=== PATIENT | female | born 1935 | race Caucasian/White ===

== ENCOUNTER 2017-04-13 15:02 | Inpatient (IN) | payer MEDICAID, MEDICARE ==
[~2017-04-13] VITALS: Ht 162.6 cm; Wt 41.9 kg
[2017-04-13] MEDS ORDERED: 0.9 % SODIUM CHLORIDE 10 ML DISP.SYRIN. IV PRN (15:15)
[2017-04-13] MEDS ORDERED: IV NORMAL SALINE 1000ML BAG 1,000 ML IV SCH (15:30)
--- NOTE | 2017-04-13 15:36 | PHYS DOC ---
Past Medical History Past Medical History: Anemia, Cancer Additional Past Medical Histor: colon cancer 2002 Past Surgical History: Colectomy Alcohol Use: None Drug Use: None Adult General Chief Complaint Chief Complaint: ALTERED MENTAL STATUS HPI HPI Patient is a pleasant 81-year-old female who presents with confusion today and generalized fatigue with no general complaints but she does not feel comfortable to go home. What I was able to ascertain from her history patient lives alone by herself was brought in today because of failure to thrive. She normally is able to take care of herself feet herself do daily activities of living but has at this point she is also significant amount of weight seems very confused. She has no specific complaints as accompanied days look in her face but is unable to answer any pertinent questions about her past medical problems with the exception of history of ectopic and years and years and years ago. Patient claims not drink alcohol or smoke patient is not allergic to any medications. Patient's no complaint of abdominal pain, URI symptoms, UTI symptoms, nausea, vomiting, diarrhea, rash, chest pain, shortness breath or other symptoms except generalized weakness. Differential diagnosis included upon presentation on illnesses. 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 It often presents suddenly and fluctuates in intensity. Delirium frequently is associated with psychotic symptoms and can improve following antipsychotic treatment [Frequent causes of delirium include fluid or electrolyte abnormalities, hypoglycemia, hypoxia, hypercapnea, infections, or medications, substance intoxication or withdrawal Endocrine disorders Thyroid disease, parathyroid disease, adrenal disease. Hepatic and renal disorders Hepatic encephalopathy, uremic encephalopathy Infectious disease HIV, syphilis, herpes simplex encephalitis, Lyme disease, prion disorders Inflammatory or demyelinating disorders Anti-NMDA receptor encephalitis, systemic lupus erythematosus, multiple sclerosis, leukodystrophic. Metabolic disorders or acute processes Wilsons disease, acute intermittent porphyria. Neurodegenerative disorders Alzheimers disease, dementia with Lewy bodies, Parkinsons disease, Huntingtons disease. Neurological Head trauma/traumatic brain injury, space-occupying lesions ( tumors, cysts), seizure disorders; stroke. Vitamin deficiency Vitamin B12 deficiency. [] Review of Systems Review of Systems Constitutional: Denies fever or chills she complains of generalized weakness Eyes: Denies change in visual acuity, redness, or eye pain [] HENT: Denies nasal congestion or sore throat [] Respiratory: Denies cough or shortness of breath [] Cardiovascular: No additional information not addressed in HPI [] GI: Denies abdominal pain, nausea, vomiting, bloody stools or diarrhea [] : Denies dysuria or hematuria [] Musculoskeletal: Denies back pain or joint pain [] Integument: Denies rash or skin lesions [] Neurologic: Denies headache, focal weakness or sensory changes [] Endocrine: Denies polyuria or polydipsia [] Current Medications Current Medications Current Medications Medications (Trade) Dose Ordered Sig/Jason Start Time Stop Time Status Last Admin Dose Admin Sodium Chloride (Normal Saline Flush) 10 ml QSHIFT PRN 04/13/17 15:15 04/13/17 16:13 10 ML Allergies Allergies Allergies Coded Allergies Type Severity Reaction Last Updated Verified No Known Drug Allergies 04/13/17 No Physical Exam Physical Exam Constitutional: Patient is very thin and cachectic shows central muscle wasting as well as temporal wasting she is obviously dehydrated but in no acute distress nontoxic in appearance. HENT: Normocephalic, atraumatic, bilateral external ears normal, mild erythema or exudates extremities are dry Eyes: PERRLA, EOMI, conjunctiva normal, no discharge. [] Neck: Normal range of motion, no tenderness, supple, no stridor. No bruits Cardiovascular:Heart rate regular rhythm, no murmur [] Lungs & Thorax: Bilateral breath sounds clear to auscultation [] Abdomen: Bowel sounds normal, soft, no tenderness, no masses, no pulsatile masses. [] Skin: Warm, dry, no erythema, no rash. [] Back: No obvious deformity or tenderness no obvious schilling of trauma. Extremities: No tenderness, no cyanosis, no clubbing, ROM intact, no edema. [] Neurologic: Alert and oriented X 1, normal motor function, patient moves all limbs spontaneously no apparent sensory dysfunction patient has obvious disorientation is repeating herself multiple times. Psychologic: She feels and seems very depressed to me. She is very sad looking has tears in her eyes Current Patient Data Vital Signs Vital Signs Date Time Temp Pulse Resp B/P (MAP) Pulse Ox O2 Delivery O2 Flow Rate FiO2 04/13/17 17:00 58 16 162/74 (103) 93 2.0 04/13/17 15:19 99.0 Room Air 99.0 Lab Values Laboratory Tests Test 04/13/17 15:35 White Blood Count 3.5 x10^3/uL (4.0-11.0) L Red Blood Count 3.75 x10^6/uL (3.50-5.40) Hemoglobin 10.7 g/dL (12.0-15.5) L Hematocrit 32.3 % (36.0-47.0) L Mean Corpuscular Volume 86 fL (79-100) Mean Corpuscular Hemoglobin 29 pg (25-35) Mean Corpuscular Hemoglobin Concent 33 g/dL (31-37) Red Cell Distribution Width 17.4 % (11.5-14.5) H Platelet Count 81 x10^3/uL (140-400) L Neutrophils (%) (Auto) 70 % (31-73) Lymphocytes (%) (Auto) 13 % (24-48) L Monocytes (%) (Auto) 17 % (0-9) H Eosinophils (%) (Auto) 0 % (0-3) Basophils (%) (Auto) 0 % (0-3) Neutrophils # (Auto) 2.5 x10^3uL (1.8-7.7) Lymphocytes # (Auto) 0.5 x10^3/uL (1.0-4.8) L Monocytes # (Auto) 0.6 x10^3/uL (0.0-1.1) Eosinophils # (Auto) 0.0 x10^3/uL (0.0-0.7) Basophils # (Auto) 0.0 x10^3/uL (0.0-0.2) Segmented Neutrophils % 66 % (35-66) Lymphocytes % 18 % (24-48) L Monocytes % 12 % (0-10) H Eosinophils % 1 % (0-5) Metamyelocytes % 3 % (0-0) H Platelet Estimate Decreased (ADEQUATE) Anisocytosis Slight Sodium Level 143 mmol/L (136-145) Potassium Level 3.5 mmol/L (3.5-5.1) Chloride Level 104 mmol/L (98-107) Carbon Dioxide Level 25 mmol/L (21-32) Anion Gap 14 (6-14) Blood Urea Nitrogen 26 mg/dL (7-20) H Creatinine 1.2 mg/dL (0.6-1.0) H Estimated GFR (Cockcroft-Gault) 43.2 BUN/Creatinine Ratio 22 (6-20) H Glucose Level 103 mg/dL (70-99) H Lactic Acid Level 1.3 mmol/L (0.4-2.0) Calcium Level 9.0 mg/dL (8.5-10.1) Magnesium Level 1.9 mg/dL (1.8-2.4) Total Bilirubin 0.6 mg/dL (0.2-1.0) Aspartate Amino Transferase (AST) 27 U/L (15-37) Alanine Aminotransferase (ALT) 26 U/L (14-59) Alkaline Phosphatase 101 U/L (46-116) Ammonia < 10 mcmol/L (11-34) L Creatine Kinase 50 U/L (26-192) Creatine Kinase MB (Mass) < 0.5 ng/mL (0.0-3.6) Creatine Kinase MB Relative Index % (0-4) Troponin I Quantitative 0.024 ng/mL (0.000-0.055) OT-Fcp-I-Type Natriuretic Peptide 1155 pg/mL (0-449) H Total Protein 7.9 g/dL (6.4-8.2) Albumin 3.4 g/dL (3.4-5.0) Albumin/Globulin Ratio 0.8 (1.0-1.7) L Thyroid Stimulating Hormone (TSH) 3.054 uIU/mL (0.358-3.74) Laboratory Tests 04/13/17 15:35 Laboratory Tests 04/13/17 15:35 EKG EKG [] Radiology/Procedures Radiology/Procedures [] Course & Med Decision Making Course & Med Decision Making Pertinent Labs and Imaging studies reviewed. (See chart for details) Patient initially presented with generalized weakness and not feeling all that well was admitted to the hospital here for a second evaluation for failure to thrive. Patient seems very depressed and says that she doesn't really want to go on living like this although she expresses no specific suicidal ideation or suicidal attempt she seems very depressed and unable to form her thoughts about what she means by that feeling. She lives by herself and she is very cachectic very disheveled with generalized weakness and likely inability to complete activities of daily living. During her evaluation is evident that she is dehydrated on physical exam she is malnourished with mild muscle wasting at the temples. 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 Urinalysis is still pending at this time. At this point patient will be admitted to the hospital with failure to thrive to internal medicine service for the sake of penitentiary placement. [facility] note: Internal medicine service consult [facility] called at of the service 6:30 PM Consult called back at 63 5 PM Discussed the case I presented and they agreed with admission. Time of acceptance 635 Impression: Dehydration, depression, failure to thrive, generalized weakness Disposition admission the hospital doctor [] Lydia Disclaimer Dragon Disclaimer This electronic medical record was generated, in whole or in part, using a voice recognition dictation system. Departure Departure Impression: Primary Impression: Failure to thrive Additional Impressions: Dehydration Malnutrition Depression Disposition: ADMITTED INPATIENT Admitting Physician: Joy Lopez Condition: STABLE Problem Qualifiers SHARAN ADKINS MD Apr 13, 2017 15:36
--- NOTE | 2017-04-13 15:45 | RAD ---
Indication change in mental status. Weakness. Suspect CVA. Protocol study. A single view of the chest was obtained. No prior imaging of the chest is available. Heart size is normal. There is no gross congestive heart failure. There are suspect background changes of emphysema or fibrosis. There are patchy opacities at the lung bases. This may reflect atelectasis or pneumonia. Significant pleural fluid is not seen. There is no pneumothorax. IMPRESSION: Probable chronic changes. Patchy areas of volume loss at the lung bases right somewhat greater than left compatible with atelectasis or pneumonia
[2017-04-13 15:47] LABS: BASO % 0 % (0-3); EOS % 0 % (0-3); HEMATOCRIT 32.3 % (36.0-47.0); HEMOGLOBIN 10.7 g/dL (12.0-15.5); LYMPH # 0.5 x10^3/uL (1.0-4.8); LYMPH % 13 % (24-48); MEAN CORPUSCULAR HEMOGLOBIN 29 pg (25-35); MEAN CORPUSCULAR HGB CONC 33 g/dL (31-37); MEAN CORPUSCULAR VOLUME 86 fL (79-100); MONO % 17 % (0-9); NEUT % 70 % (31-73); PLATELET COUNT 81 x10^3/uL (140-400); RED BLOOD COUNT 3.75 x10^6/uL (3.50-5.40); RED CELL DISTRIBUTION WIDTH 17.4 % (11.5-14.5); WHITE BLOOD COUNT 3.5 x10^3/uL (4.0-11.0)
[2017-04-13 15:54] LABS: CREATININE 1.2 mg/dL (0.6-1.0); GFR 43.2; POTASSIUM 3.5 mmol/L (3.5-5.1)
[2017-04-13 16:00] LABS: ALBUMIN 3.4 g/dL (3.4-5.0); ALBUMIN/GLOBULIN RATIO 0.8 (1.0-1.7); MAGNESIUM 1.9 mg/dL (1.8-2.4); TOTAL BILIRUBIN 0.6 mg/dL (0.2-1.0); TOTAL PROTEIN 7.9 g/dL (6.4-8.2)
--- NOTE | 2017-04-13 16:06 | RAD ---
Indication change in mental status. Noncontrast images of the head were obtained. No prior imaging of the head is available. The calvarium appears unremarkable. The visualized paranasal sinuses appear normal. There is some mild underlying atrophy. There is increased lucency in the deep white matter compatible with microvascular disease. No subdural or epidural hematoma is seen. No mass or midline shift is seen. There is no evidence of hemorrhage. Acute finding is not seen. IMPRESSION: Chronic changes. No acute finding seen PQRS Compliance Statement: One or more of the following individualized dose reduction techniques were utilized for this examination: 1. Automated exposure control 2. Adjustment of the mA and/or kV according to patient size 3. Use of iterative reconstruction technique
--- NOTE | 2017-04-13 16:09 | EKG ---
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 RI6.01 Unconfirmed report No previous ECG available for comparison Electronically Signed On 04-18-2017 9:33:20 CDT by Vu Alexander
[2017-04-13 16:20] LABS: CKMB MASS < 0.5 ng/mL (0.0-3.6); CREATINE KINASE 50 U/L (26-192)
[2017-04-13 17:30] LABS: % EOS 1 % (0-5); ANISOCYTOSIS SLIGHT; PLT ESTIMATE DECREASED (ADEQUATE)
[2017-04-13] MEDS ORDERED: ONDANSETRON PF 4 MG/2 ML VIAL. IV PRN (19:00)
[2017-04-13] MEDS ORDERED: PROCHLORPERAZINE 10 MG/2 ML VIAL. IV PRN (19:00)
[2017-04-13] MEDS ORDERED: PROCHLORPERAZINE 25 MG SUPP.RECT. PR PRN (19:00)
[2017-04-13] MEDS ORDERED: MAG HYDROX/ALUMINUM HYD/SIMETH 30 ML ORAL.SUSP PO PRN (19:00)
[2017-04-13] MEDS ORDERED: HYDROcodone/APAP 5/325MG 1 TAB TABLET PO PRN (19:00)
[2017-04-13] MEDS ORDERED: ACETAMINOPHEN 325 MG TABLET. PO PRN (19:00)
[2017-04-13] MEDS ORDERED: MORPHINE SULFATE 2 MG/ML DISP.SYRIN. IV PRN (19:00)
[2017-04-13 19:35] LABS: BILIRUBIN,URINE NEGATIVE (NEG); GLUCOSE,URINE NEGATIVE (NEG); NITRITE,URINE NEGATIVE (NEG); PH,URINE 5.5; PROTEIN,URINE 100 mg/dL (NEG-TRACE); UROBILINOGEN,URINE 0.2 mg/dL (0.2 mg/dL)
[2017-04-13 19:48] LABS: BACTERIA,URINE MANY /HPF (0-FEW); SQUAMOUS EPITHELIAL CELL,UR MOD /LPF; WBC,URINE >40 /HPF (0-4)
--- NOTE | 2017-04-13 20:02 | PDOC1 ---
History and Physical Date of Admission Date of Admission DATE: 04/13/17 TIME: 19:50 Identification/Chief Complaint Chief Complaint poor PO, generalized weakness, confusion/not making sense Problems: Source Source: Caregiver, Chart review, Patient History of Present Illness History of Present Illness 81 y.o very frail lady who lives alone at home, drives still up until few mos ago when more weak, losing weight more, acting/saying non sense anymore , as relayed by the niece,.She does not have sons/dtr, the niece acts as her DPOA/guardian,. LAtely has been acting like a "broken record" , seeing snakes in house, losing weight, Started to go downhill since Nov 2016 of sorts, weight 155 lbs late last yr and now possibly down to 90 lbs. Lives alone at home , no reported falls, claims was able to go to the grocery with niece's few weeks ago. Supposed to be taking iron pills but not anymore, claims she takes vinegar? to counter act her high BS LAbs ER, CT head small vessel change, labs crea 1,2 platelets 80 - new to pt, no reported easy bruising but did mention nosebleed? when asked Essentially, labs look benign, likely dementia. HR though is 47 at rest, also new. HX colon CA 15 yrs ago, limited Asks about mold and radon at home if this could cause her sxs, or being low on iron. Pt mildly anemia with hgb 10, normocytic Past Medical History Cardiovascular: No pertinent hx Pulmonary: No pertinent hx GI: No pertinent hx Heme/Onc: Cancer (colon ca, limited), Iron deficiency Anemia Hepatobiliary: No pertinent hx Psych: No pertinent hx Rheumatologic: No pertinent hx Infectious disease: No pertinent hx ENT: No pertinent hx Renal/: No pertinent hx Endocrine: No pertinent hx, Other (high BS?) Dermatology: No pertinent hx Past Surgical History Past Surgical History: No pertinent history Family History Family History: Family History Unknown Social History Smoke: No ALCOHOL: none Drugs: None Current Problem List Problem List Problems Medical Problems: (1) Dehydration Status: Acute (2) Depression Status: Acute (3) Failure to thrive Status: Acute (4) Malnutrition Status: Acute Problems: Current Medications Current Medications Current Medications Sodium Chloride 1,000 ml @ 1,000 mls/hr Q1H IV Last administered on 04/13/17 16:13; Start 04/13/17 at 15:30; Stop 04/13/17 at 16:29; Status DC Sodium Chloride (Normal Saline Flush) 10 ml QSHIFT PRN IV AFTER MEDS AND BLOOD DRAWS Last administered on 04/13/17 16:13; Start 04/13/17 at 15:15 Ondansetron HCl (Zofran) 4 mg PRN Q6HRS PRN IV NAUSEA/VOMITING; Start 04/13/17 at 19:00 Prochlorperazine Edisylate (Compazine) 10 mg PRN Q6HRS PRN IV NAUSEA/VOMITING; Start 04/13/17 at 19:00 Prochlorperazine (Compazine) 25 mg PRN Q12HR PRN CO NAUSEA/VOMITING; Start 04/13 at 19:00 Al Hydroxide/Mg Hydroxide (Mylanta Plus Xs) 30 ml PRN Q3HRS PRN PO HEARTBURN / GAS; Start 04/13/17 at 19:00 Calcium Carbonate/ Glycine (Tums) 500 mg PRN Q3HRS PRN PO UPSET STOMACH; Start 04/13/17 at 19:00 Morphine Sulfate 1 mg PRN Q1HR PRN IV PAIN; Start 04/13/17 at 19:00 Acetaminophen/ Hydrocodone Bitart (Lortab 5/325) 1 tab PRN Q4HRS PRN PO MILD PAIN; Start 04/13/17 at 19:00 Acetaminophen (Tylenol) 650 mg PRN Q6HRS PRN PO Headaches, Temp > 101.5F; Start 04/13/17 at 19:00 Allergies Allergies: Coded Allergies: No Known Drug Allergies (Unverified , 04/13/17) ROS Review of System difficult to obtain, hard to focus Physical Exam General: Cooperative, No acute distress, Other (scatterd ideas, jumps from 1 topic to another, very frail, thin) HEENT: Atraumatic, PERRLA, EOMI Lungs: Clear to auscultation Heart: S1S2, RRR, no thrills, no rubs, no gallops, no murmurs Cardiovascular: S1, S2 Breasts: Normal Abdomen: Normal bowel sounds, Soft, No tenderness, No hepatosplenomegaly, No masses Rectal Exam: not examined PELVIC: Nml ext genitalia Extremities: No clubbing, No cyanosis, No edema, Normal pulses, No tenderness/ swelling Skin: Other (miniaml subQ tissue) Neuro: Normal gait, Normal speech, Strength at 5/5 X4 ext, Normal tone, Sensation intact, Cranial nerves 3-12 NL, Reflexes 2+ Psych/Mental Status: Mental status NL, Mood NL Vitals Vitals Vital Signs Date Time Temp Pulse Resp B/P (MAP) Pulse Ox O2 Delivery O2 Flow Rate FiO2 04/13/17 18:00 56 16 166/84 (111) 95 2.0 04/13/17 15:19 99.0 Room Air 99.0 Labs Labs Laboratory Tests Test 04/13/17 15:35 04/13/17 19:10 White Blood Count 3.5 x10^3/uL (4.0-11.0) Red Blood Count 3.75 x10^6/uL (3.50-5.40) Hemoglobin 10.7 g/dL (12.0-15.5) Hematocrit 32.3 % (36.0-47.0) Mean Corpuscular Volume 86 fL (79-100) Mean Corpuscular Hemoglobin 29 pg (25-35) Mean Corpuscular Hemoglobin Concent 33 g/dL (31-37) Red Cell Distribution Width 17.4 % (11.5-14.5) Platelet Count 81 x10^3/uL (140-400) Neutrophils (%) (Auto) 70 % (31-73) Lymphocytes (%) (Auto) 13 % (24-48) Monocytes (%) (Auto) 17 % (0-9) Eosinophils (%) (Auto) 0 % (0-3) Basophils (%) (Auto) 0 % (0-3) Neutrophils # (Auto) 2.5 x10^3uL (1.8-7.7) Lymphocytes # (Auto) 0.5 x10^3/uL (1.0-4.8) Monocytes # (Auto) 0.6 x10^3/uL (0.0-1.1) Eosinophils # (Auto) 0.0 x10^3/uL (0.0-0.7) Basophils # (Auto) 0.0 x10^3/uL (0.0-0.2) Segmented Neutrophils % 66 % (35-66) Lymphocytes % 18 % (24-48) Monocytes % 12 % (0-10) Eosinophils % 1 % (0-5) Metamyelocytes % 3 % (0-0) Platelet Estimate Decreased (ADEQUATE) Anisocytosis Slight Sodium Level 143 mmol/L (136-145) Potassium Level 3.5 mmol/L (3.5-5.1) Chloride Level 104 mmol/L (98-107) Carbon Dioxide Level 25 mmol/L (21-32) Anion Gap 14 (6-14) Blood Urea Nitrogen 26 mg/dL (7-20) Creatinine 1.2 mg/dL (0.6-1.0) Estimated GFR (Cockcroft-Gault) 43.2 BUN/Creatinine Ratio 22 (6-20) Glucose Level 103 mg/dL (70-99) Lactic Acid Level 1.3 mmol/L (0.4-2.0) Calcium Level 9.0 mg/dL (8.5-10.1) Magnesium Level 1.9 mg/dL (1.8-2.4) Total Bilirubin 0.6 mg/dL (0.2-1.0) Aspartate Amino Transf (AST/SGOT) 27 U/L (15-37) Alanine Aminotransferase (ALT/SGPT) 26 U/L (14-59) Alkaline Phosphatase 101 U/L (46-116) Ammonia < 10 mcmol/L (11-34) Creatine Kinase 50 U/L (26-192) Creatine Kinase MB (Mass) < 0.5 ng/mL (0.0-3.6) Creatine Kinase MB Relative Index % (0-4) Troponin I Quantitative 0.024 ng/mL (0.000-0.055) TH-Oig-S-Type Natriuretic Peptide 1155 pg/mL (0-449) Total Protein 7.9 g/dL (6.4-8.2) Albumin 3.4 g/dL (3.4-5.0) Albumin/Globulin Ratio 0.8 (1.0-1.7) Thyroid Stimulating Hormone (TSH) 3.054 uIU/mL (0.358-3.74) Urine Collection Type Void Urine Color Yellow Urine Clarity Clear Urine pH 5.5 Urine Specific [place] 1.015 Urine Protein 100 mg/dL (NEG-TRACE) Urine Glucose (UA) Negative mg/dL (NEG) Urine Ketones (Stick) Trace mg/dL (NEG) Urine Blood Moderate (NEG) Urine Nitrite Negative (NEG) Urine Bilirubin Negative (NEG) Urine Urobilinogen Dipstick 0.2 mg/dL (0.2 mg/dL) Urine Leukocyte Esterase Moderate (NEG) Urine RBC 11-20 /HPF (0-2) Urine WBC >40 /HPF (0-4) Urine Squamous Epithelial Cells Mod /LPF Urine Bacteria Many /HPF (0-FEW) Urine Mucus Mod /LPF Laboratory Tests Test 04/13/17 15:35 04/13/17 19:10 White Blood Count 3.5 x10^3/uL (4.0-11.0) Red Blood Count 3.75 x10^6/uL (3.50-5.40) Hemoglobin 10.7 g/dL (12.0-15.5) Hematocrit 32.3 % (36.0-47.0) Mean Corpuscular Volume 86 fL (79-100) Mean Corpuscular Hemoglobin 29 pg (25-35) Mean Corpuscular Hemoglobin Concent 33 g/dL (31-37) Red Cell Distribution Width 17.4 % (11.5-14.5) Platelet Count 81 x10^3/uL (140-400) Neutrophils (%) (Auto) 70 % (31-73) Lymphocytes (%) (Auto) 13 % (24-48) Monocytes (%) (Auto) 17 % (0-9) Eosinophils (%) (Auto) 0 % (0-3) Basophils (%) (Auto) 0 % (0-3) Neutrophils # (Auto) 2.5 x10^3uL (1.8-7.7) Lymphocytes # (Auto) 0.5 x10^3/uL (1.0-4.8) Monocytes # (Auto) 0.6 x10^3/uL (0.0-1.1) Eosinophils # (Auto) 0.0 x10^3/uL (0.0-0.7) Basophils # (Auto) 0.0 x10^3/uL (0.0-0.2) Segmented Neutrophils % 66 % (35-66) Lymphocytes % 18 % (24-48) Monocytes % 12 % (0-10) Eosinophils % 1 % (0-5) Metamyelocytes % 3 % (0-0) Platelet Estimate Decreased (ADEQUATE) Anisocytosis Slight Sodium Level 143 mmol/L (136-145) Potassium Level 3.5 mmol/L (3.5-5.1) Chloride Level 104 mmol/L (98-107) Carbon Dioxide Level 25 mmol/L (21-32) Anion Gap 14 (6-14) Blood Urea Nitrogen 26 mg/dL (7-20) Creatinine 1.2 mg/dL (0.6-1.0) Estimated GFR (Cockcroft-Gault) 43.2 BUN/Creatinine Ratio 22 (6-20) Glucose Level 103 mg/dL (70-99) Lactic Acid Level 1.3 mmol/L (0.4-2.0) Calcium Level 9.0 mg/dL (8.5-10.1) Magnesium Level 1.9 mg/dL (1.8-2.4) Total Bilirubin 0.6 mg/dL (0.2-1.0) Aspartate Amino Transf (AST/SGOT) 27 U/L (15-37) Alanine Aminotransferase (ALT/SGPT) 26 U/L (14-59) Alkaline Phosphatase 101 U/L (46-116) Ammonia < 10 mcmol/L (11-34) Creatine Kinase 50 U/L (26-192) Creatine Kinase MB (Mass) < 0.5 ng/mL (0.0-3.6) Creatine Kinase MB Relative Index % (0-4) Troponin I Quantitative 0.024 ng/mL (0.000-0.055) XN-Rkk-I-Type Natriuretic Peptide 1155 pg/mL (0-449) Total Protein 7.9 g/dL (6.4-8.2) Albumin 3.4 g/dL (3.4-5.0) Albumin/Globulin Ratio 0.8 (1.0-1.7) Thyroid Stimulating Hormone (TSH) 3.054 uIU/mL (0.358-3.74) Urine Collection Type Void Urine Color Yellow Urine Clarity Clear Urine pH 5.5 Urine Specific [place] 1.015 Urine Protein 100 mg/dL (NEG-TRACE) Urine Glucose (UA) Negative mg/dL (NEG) Urine Ketones (Stick) Trace mg/dL (NEG) Urine Blood Moderate (NEG) Urine Nitrite Negative (NEG) Urine Bilirubin Negative (NEG) Urine Urobilinogen Dipstick 0.2 mg/dL (0.2 mg/dL) Urine Leukocyte Esterase Moderate (NEG) Urine RBC 11-20 /HPF (0-2) Urine WBC >40 /HPF (0-4) Urine Squamous Epithelial Cells Mod /LPF Urine Bacteria Many /HPF (0-FEW) Urine Mucus Mod /LPF VTE Prophylaxis Ordered VTE Prophylaxis Devices: Contraindicated VTE Pharmacological Prophylaxi: Contraindicated Assessment/Plan Assessment/Plan 1. FTT sxs 2. 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 Anemia, normocytic 4. Hx Yosvany and colon ca, limited (15vyrs ago) 5. Undernourished/undernutrition - BMI 15.4 6. BASHIR, vaso motor 7. Poor PO 8. Bradycardia 9. Thrombocytopnia - new dx *(At least to pt) PLAN: Admit 2 [place] NIece agreeble to SNU SCS as DVT NO lovenox or heparin bec of low platelets MAy consult heme onc - but would not aggressively work up this elderly (niece wants us "not to just give up on her"), wants full work up' Consult cards re bradycardia NO home meds to resume PT.OT SW SNU screen IVF from ER then procalamine for caloric build up NUtrition consult Re check BMP nell Dementia work up, chesk TSH, ESR, b12, folate Can consult neuro - i did heavy counselling at ER level re dementia - i think niece hearing it from neurologist will drive home the point Seen at ER SIGNIF TIME QUIRINO GOMEZ MD Apr 13, 2017 20:02
[2017-04-13 21:10] VITALS: BP 155/58
[2017-04-13] MEDS ORDERED: PNEUMOCOCCAL VAX SCREEN BY RX. MC ONE (22:30)
[2017-04-13] MEDS: AMINO AC 3%/ELECTROLYTE/GLYCER 1,000 ML IV SCH (22:43)
--- NOTE | 2017-04-13 23:04 | ACF ---
Admission Forms Criteria MALNUTRITION Clinical Indications for Inpatient Care (Place 'X' for any and all applicable criteria): Ongoing inpatient care may be indicated for patient requiring artificial nutrition[B] as indicated by ANY ONE of the following (1)(32): [X ]I. BMI less than 16 [ ]II Inability to maintain oral intake (33) [ ]III. Severe metabolic abnormalities, including 1 or more of the following(18 ): [ ]a) Metabolic acidosis as indicated by pH less than 7.30 [ ]b) Significant hypocalcemia as indicated by 1 or more of the following(19): [ ]i) Calcium less than 7 mg/dL (1.75 mmol/L) [ ]ii) Calcium less than 8 mg/dL (2 mmol/L) with 1 or more of the following: [ ]1) Neurologic symptoms [ ]2) Altered mental status [ ]3) Muscle spasms [ ]4) Seizures [ ]5) Breathing difficulty [ ]6) Cardiac arrhythmia or conduction defects [ ]7) Other significant symptoms or findings [ ]c) Significant hypomagnesemia as indicated by 1 or more of the following(20)(21): [ ]i) Magnesium less than 1.0 mg/dL (0.41 mmol/L) [ ]ii) Magnesium less than 1.5 mg/dL (0.62 mmol/L) and 1 or more of the following: [ ]1) Associated hypocalcemia with ANY ONE of the following: [ ]A. Neurologic symptoms [ ]B. Mental status changes [ ]C. Muscle spasms [ ]D. Seizures [ ]E. Breathing difficulty [ ]F. Cardiac arrhythmia or conduction defect [ ]G. Other significant findings [ ]2) Associated hypokalemia (potassium < 3 mEq/L (mmol/ L)) with risk of arrhythmia [ ]d) Refeeding syndrome with significant electrolyte abnormality as indicated by ANY ONE of the following(41)(41)(43): [ ]i) Phosphorus less than 1 mg/dL (0.32 mmol/L) [ ]ii) Phosphorus < 1.5 mg/dL (0.48 mmol/L) with 1 or more of the following significant symptoms or findings: [ ]1) Weakness [ ]2) Altered mental status [ ]3) Breathing difficulty [ ]4) Seizures [ ]5) Rhabdomyolysis [ ] iii) Sodium less than 130 mEq/L (mmol/L) (new) [ ] iv) Sodium less than 135 mEq/L (mmol/L) with 1 or more of the following: [ ]1) Altered mental status [ ]2) Seizures [ ] v) Potassium less than 3.0 mEq/L (mmol/L) despite treatment [ ]IV. Complication of parenteral nutrition requiring inpatient care; examples include(23): [ ]a) Catheter-related infection or thrombosis. [ ]b) Severe electrolyte abnormalities [ ]c) Severe hypoglycemia or hyperglycemia requiring inpatient care [ ]V. Complication of enteral nutrition requiring inpatient care (eg, gastric perforation) Extended stay maybe needed until ALL of the following are present(1)(26)(46): [ ]a) Metabolic abnormalities resolved or manageable at a lower level of care ; examples include: [ ]i) Serum pH greater than 7.3 [ ]ii) Electrolyte status acceptable [ ]b) Complications of enteral or parenteral nutrition resolved or manageable at a lower level of care [ ]c) Medical comorbidities manageable at a lower level of care The original [email or web address] content created by [employer] has been revised. The portions of the content which have been revised are identified through the use of italic text or in bold, and [facility] has neither reviewed nor approved the modified material. All other unmodified content is copyright [facility]. Please see references footnoted in the original [email or web address] edition 2016 Admission Criteria Met?: Yes RAHEEM SCHMITT Apr 13, 2017 23:04
[2017-04-13 23:05] VITALS: BP 131/48
[2017-04-14 03:15] VITALS: BP 142/57
[2017-04-14 07:50] VITALS: BP 129/50
[2017-04-14 08:57] LABS: BASO % 0 % (0-3); EOS % 0 % (0-3); HEMATOCRIT 28.1 % (36.0-47.0); HEMOGLOBIN 9.5 g/dL (12.0-15.5); LYMPH # 0.4 x10^3/uL (1.0-4.8); LYMPH % 11 % (24-48); MEAN CORPUSCULAR HEMOGLOBIN 29 pg (25-35); MEAN CORPUSCULAR HGB CONC 34 g/dL (31-37); MEAN CORPUSCULAR VOLUME 85 fL (79-100); MONO % 15 % (0-9); NEUT % 73 % (31-73); PLATELET COUNT 71 x10^3/uL (140-400); RED BLOOD COUNT 3.29 x10^6/uL (3.50-5.40); RED CELL DISTRIBUTION WIDTH 17.3 % (11.5-14.5); WHITE BLOOD COUNT 3.6 x10^3/uL (4.0-11.0)
[2017-04-14] MEDS ORDERED: ENOXAPARIN 30 MG/0.3 ML SYRINGE. SQ SCH (09:00)
[2017-04-14] MEDS ORDERED: PNEUMOC CONJ VACC 23-VALENT 0.5 ML VIAL. VAX IM ONE (09:00)
[2017-04-14 09:04] LABS: CALCIUM 8.1 mg/dL (8.5-10.1); CREATININE 0.8 mg/dL (0.6-1.0); POTASSIUM 3.8 mmol/L (3.5-5.1)
[2017-04-14] MEDS: AMINO AC 3%/ELECTROLYTE/GLYCER 1,000 ML IV SCH ×2 (10:08→22:00)
[2017-04-14 11:10] VITALS: BP 125/51
--- NOTE | 2017-04-14 11:16 | PDOC ---
PROGRESS NOTES Chief Complaint Chief Complaint 1. FTT sxs 2. 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 Anemia, normocytic 4. Hx Yosvany and colon ca, limited (15vyrs ago) 5. Undernourished/undernutrition - BMI 15.4 6. BASHIR, vaso motor 7. Poor PO 8. Bradycardia 9. Thrombocytopnia - new dx *(At least to pt) History of Present Illness History of Present Illness Brushing teeth in bed. On IV Pro[place] DW RN Vitals Vitals Vital Signs Date Time Temp Pulse Resp B/P (MAP) Pulse Ox O2 Delivery O2 Flow Rate FiO2 04/14/17 11:10 97.7 63 20 125/51 (75) 94 Nasal Cannula 2.0 97.7 Physical Exam General: Cooperative, No acute distress, Other (scatterd ideas, jumps from 1 topic to another, very frail, thin) Heart: Regular rate, Normal S1, Normal S2 Lungs: Clear Abdomen: Normal bowel sounds, Soft, No tenderness, No hepatosplenomegaly, No masses Extremities: No clubbing, No cyanosis, No edema, Normal pulses, No tenderness/ swelling Skin: No rashes, No breakdown, Other (miniaml subQ tissue) Labs LABS Laboratory Tests Test 04/13/17 15:35 04/13/17 19:10 04/14/17 07:30 White Blood Count 3.5 x10^3/uL (4.0-11.0) 3.6 x10^3/uL (4.0-11.0) Red Blood Count 3.75 x10^6/uL (3.50-5.40) 3.29 x10^6/uL (3.50-5.40) Hemoglobin 10.7 g/dL (12.0-15.5) 9.5 g/dL (12.0-15.5) Hematocrit 32.3 % (36.0-47.0) 28.1 % (36.0-47.0) Mean Corpuscular Volume 86 fL (79-100) 85 fL (79-100) Mean Corpuscular Hemoglobin 29 pg (25-35) 29 pg (25-35) Mean Corpuscular Hemoglobin Concent 33 g/dL (31-37) 34 g/dL (31-37) Red Cell Distribution Width 17.4 % (11.5-14.5) 17.3 % (11.5-14.5) Platelet Count 81 x10^3/uL (140-400) 71 x10^3/uL (140-400) Neutrophils (%) (Auto) 70 % (31-73) 73 % (31-73) Lymphocytes (%) (Auto) 13 % (24-48) 11 % (24-48) Monocytes (%) (Auto) 17 % (0-9) 15 % (0-9) Eosinophils (%) (Auto) 0 % (0-3) 0 % (0-3) Basophils (%) (Auto) 0 % (0-3) 0 % (0-3) Neutrophils # (Auto) 2.5 x10^3uL (1.8-7.7) 2.6 x10^3uL (1.8-7.7) Lymphocytes # (Auto) 0.5 x10^3/uL (1.0-4.8) 0.4 x10^3/uL (1.0-4.8) Monocytes # (Auto) 0.6 x10^3/uL (0.0-1.1) 0.6 x10^3/uL (0.0-1.1) Eosinophils # (Auto) 0.0 x10^3/uL (0.0-0.7) 0.0 x10^3/uL (0.0-0.7) Basophils # (Auto) 0.0 x10^3/uL (0.0-0.2) 0.0 x10^3/uL (0.0-0.2) Segmented Neutrophils % 66 % (35-66) Lymphocytes % 18 % (24-48) Monocytes % 12 % (0-10) Eosinophils % 1 % (0-5) Metamyelocytes % 3 % (0-0) Platelet Estimate Decreased (ADEQUATE) Anisocytosis Slight Erythrocyte Sedimentation Rate 62 (0-25) Sodium Level 143 mmol/L (136-145) 142 mmol/L (136-145) Potassium Level 3.5 mmol/L (3.5-5.1) 3.8 mmol/L (3.5-5.1) Chloride Level 104 mmol/L (98-107) 109 mmol/L (98-107) Carbon Dioxide Level 25 mmol/L (21-32) 28 mmol/L (21-32) Anion Gap 14 (6-14) 5 (6-14) Blood Urea Nitrogen 26 mg/dL (7-20) 23 mg/dL (7-20) Creatinine 1.2 mg/dL (0.6-1.0) 0.8 mg/dL (0.6-1.0) Estimated GFR (Cockcroft-Gault) 43.2 69.0 BUN/Creatinine Ratio 22 (6-20) Glucose Level 103 mg/dL (70-99) 107 mg/dL (70-99) Lactic Acid Level 1.3 mmol/L (0.4-2.0) Calcium Level 9.0 mg/dL (8.5-10.1) 8.1 mg/dL (8.5-10.1) Magnesium Level 1.9 mg/dL (1.8-2.4) Total Bilirubin 0.6 mg/dL (0.2-1.0) Aspartate Amino Transf (AST/SGOT) 27 U/L (15-37) Alanine Aminotransferase (ALT/SGPT) 26 U/L (14-59) Alkaline Phosphatase 101 U/L (46-116) Ammonia < 10 mcmol/L (11-34) Creatine Kinase 50 U/L (26-192) Creatine Kinase MB (Mass) < 0.5 ng/mL (0.0-3.6) Creatine Kinase MB Relative Index % (0-4) Troponin I Quantitative 0.024 ng/mL (0.000-0.055) RZ-Zqg-Y-Type Natriuretic Peptide 1155 pg/mL (0-449) Total Protein 7.9 g/dL (6.4-8.2) Albumin 3.4 g/dL (3.4-5.0) Albumin/Globulin Ratio 0.8 (1.0-1.7) Thyroid Stimulating Hormone (TSH) 3.054 uIU/mL (0.358-3.74) Urine Collection Type Void Urine Color Yellow Urine Clarity Clear Urine pH 5.5 Urine Specific [place] 1.015 Urine Protein 100 mg/dL (NEG-TRACE) Urine Glucose (UA) Negative mg/dL (NEG) Urine Ketones (Stick) Trace mg/dL (NEG) Urine Blood Moderate (NEG) Urine Nitrite Negative (NEG) Urine Bilirubin Negative (NEG) Urine Urobilinogen Dipstick 0.2 mg/dL (0.2 mg/dL) Urine Leukocyte Esterase Moderate (NEG) Urine RBC 11-20 /HPF (0-2) Urine WBC >40 /HPF (0-4) Urine Squamous Epithelial Cells Mod /LPF Urine Bacteria Many /HPF (0-FEW) Urine Mucus Mod /LPF Review of Systems Review of Systems co weakness co confusion Assessment and Plan Assessmemt and Plan Problems Medical Problems: (1) Dehydration Status: Acute (2) Depression Status: Acute (3) Failure to thrive Status: Acute (4) Malnutrition Status: Acute Assessment/Plan 1. FTT sxs 2. 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 Anemia, normocytic 4. Hx Yosvany and colon ca, limited (15vyrs ago) 5. Undernourished/undernutrition - BMI 15.4 6. BASHIR, vaso motor 7. Poor PO 8. Bradycardia 9. Thrombocytopnia - new dx *(At least to pt) PLAN: NIece agreeble to SNU SCS as DVT NO lovenox or heparin bec of low platelets MAy consult heme onc - but would not aggressively work up this elderly (niece wants us "not to just give up on her"), wants full work up' Consult cards re bradycardia NO home meds to resume PT.OT SW SNU screen IVF from ER then procalamine for caloric build up NUtrition consult Re check BMP nell Dementia work up, chesk TSH, ESR, b12, folate Can consult neuro - i did heavy counselling at ER level re dementia - i think niece hearing it from neurologist will drive home the point Problems: Comment Review of Relevant I have reviewed the following items mike (where applicable) has been applied. Labs Laboratory Tests Test 04/13/17 15:35 04/13/17 19:10 04/14/17 07:30 White Blood Count 3.5 x10^3/uL (4.0-11.0) 3.6 x10^3/uL (4.0-11.0) Red Blood Count 3.75 x10^6/uL (3.50-5.40) 3.29 x10^6/uL (3.50-5.40) Hemoglobin 10.7 g/dL (12.0-15.5) 9.5 g/dL (12.0-15.5) Hematocrit 32.3 % (36.0-47.0) 28.1 % (36.0-47.0) Mean Corpuscular Volume 86 fL (79-100) 85 fL (79-100) Mean Corpuscular Hemoglobin 29 pg (25-35) 29 pg (25-35) Mean Corpuscular Hemoglobin Concent 33 g/dL (31-37) 34 g/dL (31-37) Red Cell Distribution Width 17.4 % (11.5-14.5) 17.3 % (11.5-14.5) Platelet Count 81 x10^3/uL (140-400) 71 x10^3/uL (140-400) Neutrophils (%) (Auto) 70 % (31-73) 73 % (31-73) Lymphocytes (%) (Auto) 13 % (24-48) 11 % (24-48) Monocytes (%) (Auto) 17 % (0-9) 15 % (0-9) Eosinophils (%) (Auto) 0 % (0-3) 0 % (0-3) Basophils (%) (Auto) 0 % (0-3) 0 % (0-3) Neutrophils # (Auto) 2.5 x10^3uL (1.8-7.7) 2.6 x10^3uL (1.8-7.7) Lymphocytes # (Auto) 0.5 x10^3/uL (1.0-4.8) 0.4 x10^3/uL (1.0-4.8) Monocytes # (Auto) 0.6 x10^3/uL (0.0-1.1) 0.6 x10^3/uL (0.0-1.1) Eosinophils # (Auto) 0.0 x10^3/uL (0.0-0.7) 0.0 x10^3/uL (0.0-0.7) Basophils # (Auto) 0.0 x10^3/uL (0.0-0.2) 0.0 x10^3/uL (0.0-0.2) Segmented Neutrophils % 66 % (35-66) Lymphocytes % 18 % (24-48) Monocytes % 12 % (0-10) Eosinophils % 1 % (0-5) Metamyelocytes % 3 % (0-0) Platelet Estimate Decreased (ADEQUATE) Anisocytosis Slight Erythrocyte Sedimentation Rate 62 (0-25) Sodium Level 143 mmol/L (136-145) 142 mmol/L (136-145) Potassium Level 3.5 mmol/L (3.5-5.1) 3.8 mmol/L (3.5-5.1) Chloride Level 104 mmol/L (98-107) 109 mmol/L (98-107) Carbon Dioxide Level 25 mmol/L (21-32) 28 mmol/L (21-32) Anion Gap 14 (6-14) 5 (6-14) Blood Urea Nitrogen 26 mg/dL (7-20) 23 mg/dL (7-20) Creatinine 1.2 mg/dL (0.6-1.0) 0.8 mg/dL (0.6-1.0) Estimated GFR (Cockcroft-Gault) 43.2 69.0 BUN/Creatinine Ratio 22 (6-20) Glucose Level 103 mg/dL (70-99) 107 mg/dL (70-99) Lactic Acid Level 1.3 mmol/L (0.4-2.0) Calcium Level 9.0 mg/dL (8.5-10.1) 8.1 mg/dL (8.5-10.1) Magnesium Level 1.9 mg/dL (1.8-2.4) Total Bilirubin 0.6 mg/dL (0.2-1.0) Aspartate Amino Transf (AST/SGOT) 27 U/L (15-37) Alanine Aminotransferase (ALT/SGPT) 26 U/L (14-59) Alkaline Phosphatase 101 U/L (46-116) Ammonia < 10 mcmol/L (11-34) Creatine Kinase 50 U/L (26-192) Creatine Kinase MB (Mass) < 0.5 ng/mL (0.0-3.6) Creatine Kinase MB Relative Index % (0-4) Troponin I Quantitative 0.024 ng/mL (0.000-0.055) WX-Cgb-L-Type Natriuretic Peptide 1155 pg/mL (0-449) Total Protein 7.9 g/dL (6.4-8.2) Albumin 3.4 g/dL (3.4-5.0) Albumin/Globulin Ratio 0.8 (1.0-1.7) Thyroid Stimulating Hormone (TSH) 3.054 uIU/mL (0.358-3.74) Urine Collection Type Void Urine Color Yellow Urine Clarity Clear Urine pH 5.5 Urine Specific [place] 1.015 Urine Protein 100 mg/dL (NEG-TRACE) Urine Glucose (UA) Negative mg/dL (NEG) Urine Ketones (Stick) Trace mg/dL (NEG) Urine Blood Moderate (NEG) Urine Nitrite Negative (NEG) Urine Bilirubin Negative (NEG) Urine Urobilinogen Dipstick 0.2 mg/dL (0.2 mg/dL) Urine Leukocyte Esterase Moderate (NEG) Urine RBC 11-20 /HPF (0-2) Urine WBC >40 /HPF (0-4) Urine Squamous Epithelial Cells Mod /LPF Urine Bacteria Many /HPF (0-FEW) Urine Mucus Mod /LPF Laboratory Tests Test 04/13/17 15:35 04/13/17 19:10 04/14/17 07:30 White Blood Count 3.5 x10^3/uL (4.0-11.0) 3.6 x10^3/uL (4.0-11.0) Red Blood Count 3.75 x10^6/uL (3.50-5.40) 3.29 x10^6/uL (3.50-5.40) Hemoglobin 10.7 g/dL (12.0-15.5) 9.5 g/dL (12.0-15.5) Hematocrit 32.3 % (36.0-47.0) 28.1 % (36.0-47.0) Mean Corpuscular Volume 86 fL (79-100) 85 fL (79-100) Mean Corpuscular Hemoglobin 29 pg (25-35) 29 pg (25-35) Mean Corpuscular Hemoglobin Concent 33 g/dL (31-37) 34 g/dL (31-37) Red Cell Distribution Width 17.4 % (11.5-14.5) 17.3 % (11.5-14.5) Platelet Count 81 x10^3/uL (140-400) 71 x10^3/uL (140-400) Neutrophils (%) (Auto) 70 % (31-73) 73 % (31-73) Lymphocytes (%) (Auto) 13 % (24-48) 11 % (24-48) Monocytes (%) (Auto) 17 % (0-9) 15 % (0-9) Eosinophils (%) (Auto) 0 % (0-3) 0 % (0-3) Basophils (%) (Auto) 0 % (0-3) 0 % (0-3) Neutrophils # (Auto) 2.5 x10^3uL (1.8-7.7) 2.6 x10^3uL (1.8-7.7) Lymphocytes # (Auto) 0.5 x10^3/uL (1.0-4.8) 0.4 x10^3/uL (1.0-4.8) Monocytes # (Auto) 0.6 x10^3/uL (0.0-1.1) 0.6 x10^3/uL (0.0-1.1) Eosinophils # (Auto) 0.0 x10^3/uL (0.0-0.7) 0.0 x10^3/uL (0.0-0.7) Basophils # (Auto) 0.0 x10^3/uL (0.0-0.2) 0.0 x10^3/uL (0.0-0.2) Segmented Neutrophils % 66 % (35-66) Lymphocytes % 18 % (24-48) Monocytes % 12 % (0-10) Eosinophils % 1 % (0-5) Metamyelocytes % 3 % (0-0) Platelet Estimate Decreased (ADEQUATE) Anisocytosis Slight Erythrocyte Sedimentation Rate 62 (0-25) Sodium Level 143 mmol/L (136-145) 142 mmol/L (136-145) Potassium Level 3.5 mmol/L (3.5-5.1) 3.8 mmol/L (3.5-5.1) Chloride Level 104 mmol/L (98-107) 109 mmol/L (98-107) Carbon Dioxide Level 25 mmol/L (21-32) 28 mmol/L (21-32) Anion Gap 14 (6-14) 5 (6-14) Blood Urea Nitrogen 26 mg/dL (7-20) 23 mg/dL (7-20) Creatinine 1.2 mg/dL (0.6-1.0) 0.8 mg/dL (0.6-1.0) Estimated GFR (Cockcroft-Gault) 43.2 69.0 BUN/Creatinine Ratio 22 (6-20) Glucose Level 103 mg/dL (70-99) 107 mg/dL (70-99) Lactic Acid Level 1.3 mmol/L (0.4-2.0) Calcium Level 9.0 mg/dL (8.5-10.1) 8.1 mg/dL (8.5-10.1) Magnesium Level 1.9 mg/dL (1.8-2.4) Total Bilirubin 0.6 mg/dL (0.2-1.0) Aspartate Amino Transf (AST/SGOT) 27 U/L (15-37) Alanine Aminotransferase (ALT/SGPT) 26 U/L (14-59) Alkaline Phosphatase 101 U/L (46-116) Ammonia < 10 mcmol/L (11-34) Creatine Kinase 50 U/L (26-192) Creatine Kinase MB (Mass) < 0.5 ng/mL (0.0-3.6) Creatine Kinase MB Relative Index % (0-4) Troponin I Quantitative 0.024 ng/mL (0.000-0.055) BI-Icz-R-Type Natriuretic Peptide 1155 pg/mL (0-449) Total Protein 7.9 g/dL (6.4-8.2) Albumin 3.4 g/dL (3.4-5.0) Albumin/Globulin Ratio 0.8 (1.0-1.7) Thyroid Stimulating Hormone (TSH) 3.054 uIU/mL (0.358-3.74) Urine Collection Type Void Urine Color Yellow Urine Clarity Clear Urine pH 5.5 Urine Specific [place] 1.015 Urine Protein 100 mg/dL (NEG-TRACE) Urine Glucose (UA) Negative mg/dL (NEG) Urine Ketones (Stick) Trace mg/dL (NEG) Urine Blood Moderate (NEG) Urine Nitrite Negative (NEG) Urine Bilirubin Negative (NEG) Urine Urobilinogen Dipstick 0.2 mg/dL (0.2 mg/dL) Urine Leukocyte Esterase Moderate (NEG) Urine RBC 11-20 /HPF (0-2) Urine WBC >40 /HPF (0-4) Urine Squamous Epithelial Cells Mod /LPF Urine Bacteria Many /HPF (0-FEW) Urine Mucus Mod /LPF Medications Current Medications Sodium Chloride 1,000 ml @ 1,000 mls/hr Q1H IV Last administered on 04/13/17 16:13; Start 04/13/17 at 15:30; Stop 04/13/17 at 16:29; Status DC Sodium Chloride (Normal Saline Flush) 10 ml QSHIFT PRN IV AFTER MEDS AND BLOOD DRAWS Last administered on 04/13/17 16:13; Start 04/13/17 at 15:15 Ondansetron HCl (Zofran) 4 mg PRN Q6HRS PRN IV NAUSEA/VOMITING; Start 04/13/17 at 19:00 Prochlorperazine Edisylate (Compazine) 10 mg PRN Q6HRS PRN IV NAUSEA/VOMITING; Start 04/13/17 at 19:00 Prochlorperazine (Compazine) 25 mg PRN Q12HR PRN AR NAUSEA/VOMITING; Start 04/13 at 19:00 Al Hydroxide/Mg Hydroxide (Mylanta Plus Xs) 30 ml PRN Q3HRS PRN PO HEARTBURN / GAS; Start 04/13/17 at 19:00 Calcium Carbonate/ Glycine (Tums) 500 mg PRN Q3HRS PRN PO UPSET STOMACH; Start 04/13/17 at 19:00 Morphine Sulfate 1 mg PRN Q1HR PRN IV PAIN; Start 04/13/17 at 19:00 Acetaminophen/ Hydrocodone Bitart (Lortab 5/325) 1 tab PRN Q4HRS PRN PO MILD PAIN; Start 04/13/17 at 19:00 Acetaminophen (Tylenol) 650 mg PRN Q6HRS PRN PO Headaches, Temp > 101.5F; Start 04/13/17 at 19:00 Amino Acids/ Glycerin/ Electrolytes 1,000 ml @ 80 mls/hr [id number] IV Last administered on 04/14/17 10:08; Start 04/13/17 at 21:00 Enoxaparin Sodium (Lovenox 30mg Syringe) 30 mg DAILY SQ ; Start 04/14/17 at 09:00 Pneumococcal Polyvalent Vaccine (Do NOT chart on this placeholder) 1 each 1X ONCE MC ; Start 04/13/17 at 22:30; Stop 04/13/17 at 22:31; Status UNV Pneumococcal Polyvalent Vaccine (Pneumovax 23) 0.5 ml ONCE ONCE VAX IM ; Start 04/14/17 at 09:00; Stop 04/14/17 at 09:01; Status DC Vitals/I & O Vital Sign - Last 24 Hours 04/13/17 04/13/17 04/13/17 04/13/17 15:19 16:00 17:00 18:00 Temp 99.0 99.0 Pulse 65 60 58 56 Resp 20 16 16 16 B/P (MAP) 159/83 (108) 155/75 (101) 162/74 (103) 166/84 (111) Pulse Ox 94 88 93 95 O2 Delivery Room Air O2 Flow Rate 2.0 2.0 04/13/17 04/13/17 04/13/17 04/13/17 19:00 20:00 21:10 21:58 Temp 97.5 97.5 Pulse 54 54 50 Resp 16 16 20 B/P (MAP) 167/82 (110) 174/83 (113) 155/58 (90) Pulse Ox 96 96 98 O2 Delivery Nasal Cannula Room Air O2 Flow Rate 2.0 2.0 2.0 04/13/17 04/14/17 04/14/17 04/14/17 23:05 03:15 07:50 08:00 Temp 98.0 98.2 97.7 98.0 98.2 97.7 Pulse 57 52 47 Resp 20 20 20 B/P (MAP) 131/48 (75) 142/57 (85) 129/50 (76) Pulse Ox 98 97 95 O2 Delivery Nasal Cannula Nasal Cannula Nasal Cannula Room Air O2 Flow Rate 2.0 2.0 2.0 2.0 04/14/17 11:10 Temp 97.7 97.7 Pulse 63 Resp 20 B/P (MAP) 125/51 (75) Pulse Ox 94 O2 Delivery Nasal Cannula O2 Flow Rate 2.0 Intake and Output 04/13/17 04/13/17 04/14/17 15:00 23:00 07:00 Intake Total 220 ml Output Total 400 ml Balance -180 ml JOSE EDUARDO MCALLISTER III DO Apr 14, 2017 11:16
--- NOTE | 2017-04-14 14:34 | PDOC2 ---
CONSULT Date of Consult Date of Consult DATE: 04/14/17 TIME: 14:34 Reason for Consult Reason for Consult: thrombocytopenia Referring Physician Referring Physician: Dr. Lopez Source Source: Chart review, Patient History of Present Illness Reason for Visit: 81 yo female who lives at home presented to the hospital with failure to thrive. The patient is a poor historian and history is obtained from talking to patient and reviewing the chart. I was consulted for evaluation of anemia and thrombocytopenia. The patient states that she has been losing weight because she does not feel like going shopping or preparing meals. She has been eating crackers at home. From the chart and the nurse it states that she weighed about 150 about a year ago and currently is less than 100 pounds. She denies any fevers, nights sweats or adenopathy. To her knowledge, she denies being told prior to this admission that she has thrombocytopenia. She denies any bleeding. Past Medical History Cardiovascular: No pertinent hx Pulmonary: No pertinent hx GI: No pertinent hx Heme/Onc: Cancer (colon ca, limited), Iron deficiency Anemia Hepatobiliary: No pertinent hx Psych: No pertinent hx Rheumatologic: No pertinent hx Infectious disease: No pertinent hx ENT: No pertinent hx Renal/: No pertinent hx Endocrine: No pertinent hx, Other (high BS?) Dermatology: No pertinent hx Past Surgical History Past Surgical History: No pertinent history Family History Family History Noncontributory due to pt inability to answer Family History: Family History Unknown Social History No ALCOHOL: none Drugs: None Current Problem List Problem List Problems Medical Problems: (1) Dehydration Status: Acute (2) Depression Status: Acute (3) Failure to thrive Status: Acute (4) Malnutrition Status: Acute Current Medications Current Medications Current Medications Sodium Chloride 1,000 ml @ 1,000 mls/hr Q1H IV Last administered on 04/13/17 16:13; Start 04/13/17 at 15:30; Stop 04/13/17 at 16:29; Status DC Sodium Chloride (Normal Saline Flush) 10 ml QSHIFT PRN IV AFTER MEDS AND BLOOD DRAWS Last administered on 04/13/17 16:13; Start 04/13/17 at 15:15 Ondansetron HCl (Zofran) 4 mg PRN Q6HRS PRN IV NAUSEA/VOMITING, 1ST CHOICE; Start 04/13/17 at 19:00 Prochlorperazine Edisylate (Compazine) 10 mg PRN Q6HRS PRN IV NAUSEA/VOMITING, 2ND CHOICE; Start 04/13/17 at 19:00 Prochlorperazine (Compazine) 25 mg PRN Q12HR PRN CT NAUSEA/VOMITING; Start 04/13 at 19:00 Al Hydroxide/Mg Hydroxide (Mylanta Plus Xs) 30 ml PRN Q3HRS PRN PO HEARTBURN / GAS; Start 04/13/17 at 19:00 Calcium Carbonate/ Glycine (Tums) 500 mg PRN Q3HRS PRN PO UPSET STOMACH; Start 04/13/17 at 19:00 Morphine Sulfate 1 mg PRN Q1HR PRN IV PAIN; Start 04/13/17 at 19:00 Acetaminophen/ Hydrocodone Bitart (Lortab 5/325) 1 tab PRN Q4HRS PRN PO MILD PAIN; Start 04/13/17 at 19:00 Acetaminophen (Tylenol) 650 mg PRN Q6HRS PRN PO Headaches, Temp > 101.5F; Start 04/13/17 at 19:00 Amino Acids/ Glycerin/ Electrolytes 1,000 ml @ 80 mls/hr [id number] IV Last administered on 04/14/17t 10:08; Start 04/13/17 at 21:00 Enoxaparin Sodium (Lovenox 30mg Syringe) 30 mg DAILY SQ ; Start 04/14/17 at 09:00 Pneumococcal Polyvalent Vaccine (Do NOT chart on this placeholder) 1 each 1X ONCE MC ; Start 04/13/17 at 22:30; Stop 04/13/17 at 22:31; Status UNV Pneumococcal Polyvalent Vaccine (Pneumovax 23) 0.5 ml ONCE ONCE VAX IM ; Start 04/14/17 at 09:00; Stop 04/14/17 at 09:01; Status DC Allergies Allergies: Coded Allergies: No Known Drug Allergies (Unverified , 04/13/17) ROS General: No: Chills, Night Sweats, Fatigue, Malaise, Appetite, Other PSYCHOLOGICAL ROS: No: Anxiety, Behavioral Disorder, Concentration difficultie , Decreased libido, Depression, Disorientation, Hallucinations, Hostility, Irritablity, Memory difficulties, Mood Swings, Obsessive thoughts, Physical abuse, Sexual abuse, Sleep disturbances, Suicidal ideation, Other Eyes: No Blurry vision, No Decreased vision, No Double vision, No Dry eyes, No Excessive tearing, No Eye Pain, No Itchy Eyes, No Loss of vision, No Photophobia , No Scotomata, No Uses contacts, No Uses glasses, No Other HEENT: No: Heacaches, Visual Changes, Hearing change, Nasal congestion, Nasal discharge, Oral lesions, Sinus pain, Sore Throat, Epistaxis, Sneezing, Snoring, Tinnitus, Vertigo, Vocal changes, Other ALLERGY AND IMMUNOLOGY: No: Hives, Insect Bite Sensitivity, Itchy/Watery Eyes, Nasal Congestion, Post Nasal Drip, Seasonal Allergies, Other Hematological and Lymphatic: No: Bleeding Problems, Blood Clots, Blood Transfusions, Brusing, Night Sweats, Pallor, Swollen Lymph Nodes, Other ENDOCRINE: No: Breast Changes, Galactorrhea, Hair Pattern Changes, Hot Flashes , Malaise/lethargy, Mood Swings, Palpitations, Polydipsia/polyuria, Skin Changes , Temperature Intolerance, Unexpected Weight Changes, Other Breast: No New/Changing Breast Lumps, No Nipple changes, No Nipple discharge, No Other Respiratory: No: Cough, Hemoptysis, Orthopnea, Pleuritic Pain, Shortness of breath, SOB with excertion, Sputum Changes, Stridor, Tachypnea, Wheezing, Other Cardiovascular: No Chest Pain, No Palpitations, No Orthopnea, No Paroxysmal Noc. Dyspnea, No Edema, No Lt Headedness, No Other Gastrointestinal: No Nausea, No Vomiting, No Abdominal Pain, No Diarrhea, No Constipation, No Melena, No Hematochezia, No Other Genitourinary: No Dysuria, No Frequency, No Incontinence, No Hematuria, No Retention, No Discharge, No Urgency, No Pain, No Flank Pain, No Other, No , No , No , No , No , No , No Musculoskeletal: No Gait Disturbance, No Joint Pain, No Joint Stiffness, No Joint Swelling, No Muscle Pain, No Muscular Weakness, No Pain In:, No Swelling In:, No Other Neurological: No Behavorial Changes, No Bowel/Bladder ControlChng, No Confusion , No Dizziness, No Gait Disturbance, No Headaches, No Impaired Coord/balance, No Memory Loss, No Numbness/Tingling, No Seizures, No Speech Problems, No Tremors, No Visual Changes, No Weakness, No Other Skin: No Dry Skin, No Eczema, No Hair Changes, No Lumps, No Mole Changes, No Mottling, No Nail Changes, No Pruritus, No Rash, No Skin Lesion Changes, No Other, No Acne Physical Exam General: Alert (responds to questions) HEENT: Atraumatic, PERRLA Lungs: Clear to auscultation Heart: Regular rate, Normal S1, Normal S2 Abdomen: Normal bowel sounds, Soft Extremities: No clubbing, No cyanosis Vitals VITALS Vital Signs Date Time Temp Pulse Resp B/P (MAP) Pulse Ox O2 Delivery O2 Flow Rate FiO2 04/14/17 11:10 97.7 63 20 125/51 (75) 94 Nasal Cannula 2.0 97.7 Labs Labs Laboratory Tests Test 04/13/17 15:35 04/13/17 19:10 04/14/17 07:30 White Blood Count 3.5 x10^3/uL (4.0-11.0) 3.6 x10^3/uL (4.0-11.0) Red Blood Count 3.75 x10^6/uL (3.50-5.40) 3.29 x10^6/uL (3.50-5.40) Hemoglobin 10.7 g/dL (12.0-15.5) 9.5 g/dL (12.0-15.5) Hematocrit 32.3 % (36.0-47.0) 28.1 % (36.0-47.0) Mean Corpuscular Volume 86 fL (79-100) 85 fL (79-100) Mean Corpuscular Hemoglobin 29 pg (25-35) 29 pg (25-35) Mean Corpuscular Hemoglobin Concent 33 g/dL (31-37) 34 g/dL (31-37) Red Cell Distribution Width 17.4 % (11.5-14.5) 17.3 % (11.5-14.5) Platelet Count 81 x10^3/uL (140-400) 71 x10^3/uL (140-400) Neutrophils (%) (Auto) 70 % (31-73) 73 % (31-73) Lymphocytes (%) (Auto) 13 % (24-48) 11 % (24-48) Monocytes (%) (Auto) 17 % (0-9) 15 % (0-9) Eosinophils (%) (Auto) 0 % (0-3) 0 % (0-3) Basophils (%) (Auto) 0 % (0-3) 0 % (0-3) Neutrophils # (Auto) 2.5 x10^3uL (1.8-7.7) 2.6 x10^3uL (1.8-7.7) Lymphocytes # (Auto) 0.5 x10^3/uL (1.0-4.8) 0.4 x10^3/uL (1.0-4.8) Monocytes # (Auto) 0.6 x10^3/uL (0.0-1.1) 0.6 x10^3/uL (0.0-1.1) Eosinophils # (Auto) 0.0 x10^3/uL (0.0-0.7) 0.0 x10^3/uL (0.0-0.7) Basophils # (Auto) 0.0 x10^3/uL (0.0-0.2) 0.0 x10^3/uL (0.0-0.2) Segmented Neutrophils % 66 % (35-66) Lymphocytes % 18 % (24-48) Monocytes % 12 % (0-10) Eosinophils % 1 % (0-5) Metamyelocytes % 3 % (0-0) Platelet Estimate Decreased (ADEQUATE) Anisocytosis Slight Erythrocyte Sedimentation Rate 62 (0-25) Sodium Level 143 mmol/L (136-145) 142 mmol/L (136-145) Potassium Level 3.5 mmol/L (3.5-5.1) 3.8 mmol/L (3.5-5.1) Chloride Level 104 mmol/L (98-107) 109 mmol/L (98-107) Carbon Dioxide Level 25 mmol/L (21-32) 28 mmol/L (21-32) Anion Gap 14 (6-14) 5 (6-14) Blood Urea Nitrogen 26 mg/dL (7-20) 23 mg/dL (7-20) Creatinine 1.2 mg/dL (0.6-1.0) 0.8 mg/dL (0.6-1.0) Estimated GFR (Cockcroft-Gault) 43.2 69.0 BUN/Creatinine Ratio 22 (6-20) Glucose Level 103 mg/dL (70-99) 107 mg/dL (70-99) Lactic Acid Level 1.3 mmol/L (0.4-2.0) Calcium Level 9.0 mg/dL (8.5-10.1) 8.1 mg/dL (8.5-10.1) Magnesium Level 1.9 mg/dL (1.8-2.4) Total Bilirubin 0.6 mg/dL (0.2-1.0) Aspartate Amino Transf (AST/SGOT) 27 U/L (15-37) Alanine Aminotransferase (ALT/SGPT) 26 U/L (14-59) Alkaline Phosphatase 101 U/L (46-116) Ammonia < 10 mcmol/L (11-34) Creatine Kinase 50 U/L (26-192) Creatine Kinase MB (Mass) < 0.5 ng/mL (0.0-3.6) Creatine Kinase MB Relative Index % (0-4) Troponin I Quantitative 0.024 ng/mL (0.000-0.055) PI-Fpw-P-Type Natriuretic Peptide 1155 pg/mL (0-449) Total Protein 7.9 g/dL (6.4-8.2) Albumin 3.4 g/dL (3.4-5.0) Albumin/Globulin Ratio 0.8 (1.0-1.7) Thyroid Stimulating Hormone (TSH) 3.054 uIU/mL (0.358-3.74) Urine Collection Type Void Urine Color Yellow Urine Clarity Clear Urine pH 5.5 Urine Specific [place] 1.015 Urine Protein 100 mg/dL (NEG-TRACE) Urine Glucose (UA) Negative mg/dL (NEG) Urine Ketones (Stick) Trace mg/dL (NEG) Urine Blood Moderate (NEG) Urine Nitrite Negative (NEG) Urine Bilirubin Negative (NEG) Urine Urobilinogen Dipstick 0.2 mg/dL (0.2 mg/dL) Urine Leukocyte Esterase Moderate (NEG) Urine RBC 11-20 /HPF (0-2) Urine WBC >40 /HPF (0-4) Urine Squamous Epithelial Cells Mod /LPF Urine Bacteria Many /HPF (0-FEW) Urine Mucus Mod /LPF Laboratory Tests Test 04/13/17 15:35 04/13/17 19:10 04/14/17 07:30 White Blood Count 3.5 x10^3/uL (4.0-11.0) 3.6 x10^3/uL (4.0-11.0) Red Blood Count 3.75 x10^6/uL (3.50-5.40) 3.29 x10^6/uL (3.50-5.40) Hemoglobin 10.7 g/dL (12.0-15.5) 9.5 g/dL (12.0-15.5) Hematocrit 32.3 % (36.0-47.0) 28.1 % (36.0-47.0) Mean Corpuscular Volume 86 fL (79-100) 85 fL (79-100) Mean Corpuscular Hemoglobin 29 pg (25-35) 29 pg (25-35) Mean Corpuscular Hemoglobin Concent 33 g/dL (31-37) 34 g/dL (31-37) Red Cell Distribution Width 17.4 % (11.5-14.5) 17.3 % (11.5-14.5) Platelet Count 81 x10^3/uL (140-400) 71 x10^3/uL (140-400) Neutrophils (%) (Auto) 70 % (31-73) 73 % (31-73) Lymphocytes (%) (Auto) 13 % (24-48) 11 % (24-48) Monocytes (%) (Auto) 17 % (0-9) 15 % (0-9) Eosinophils (%) (Auto) 0 % (0-3) 0 % (0-3) Basophils (%) (Auto) 0 % (0-3) 0 % (0-3) Neutrophils # (Auto) 2.5 x10^3uL (1.8-7.7) 2.6 x10^3uL (1.8-7.7) Lymphocytes # (Auto) 0.5 x10^3/uL (1.0-4.8) 0.4 x10^3/uL (1.0-4.8) Monocytes # (Auto) 0.6 x10^3/uL (0.0-1.1) 0.6 x10^3/uL (0.0-1.1) Eosinophils # (Auto) 0.0 x10^3/uL (0.0-0.7) 0.0 x10^3/uL (0.0-0.7) Basophils # (Auto) 0.0 x10^3/uL (0.0-0.2) 0.0 x10^3/uL (0.0-0.2) Segmented Neutrophils % 66 % (35-66) Lymphocytes % 18 % (24-48) Monocytes % 12 % (0-10) Eosinophils % 1 % (0-5) Metamyelocytes % 3 % (0-0) Platelet Estimate Decreased (ADEQUATE) Anisocytosis Slight Erythrocyte Sedimentation Rate 62 (0-25) Sodium Level 143 mmol/L (136-145) 142 mmol/L (136-145) Potassium Level 3.5 mmol/L (3.5-5.1) 3.8 mmol/L (3.5-5.1) Chloride Level 104 mmol/L (98-107) 109 mmol/L (98-107) Carbon Dioxide Level 25 mmol/L (21-32) 28 mmol/L (21-32) Anion Gap 14 (6-14) 5 (6-14) Blood Urea Nitrogen 26 mg/dL (7-20) 23 mg/dL (7-20) Creatinine 1.2 mg/dL (0.6-1.0) 0.8 mg/dL (0.6-1.0) Estimated GFR (Cockcroft-Gault) 43.2 69.0 BUN/Creatinine Ratio 22 (6-20) Glucose Level 103 mg/dL (70-99) 107 mg/dL (70-99) Lactic Acid Level 1.3 mmol/L (0.4-2.0) Calcium Level 9.0 mg/dL (8.5-10.1) 8.1 mg/dL (8.5-10.1) Magnesium Level 1.9 mg/dL (1.8-2.4) Total Bilirubin 0.6 mg/dL (0.2-1.0) Aspartate Amino Transf (AST/SGOT) 27 U/L (15-37) Alanine Aminotransferase (ALT/SGPT) 26 U/L (14-59) Alkaline Phosphatase 101 U/L (46-116) Ammonia < 10 mcmol/L (11-34) Creatine Kinase 50 U/L (26-192) Creatine Kinase MB (Mass) < 0.5 ng/mL (0.0-3.6) Creatine Kinase MB Relative Index % (0-4) Troponin I Quantitative 0.024 ng/mL (0.000-0.055) AR-Cdg-X-Type Natriuretic Peptide 1155 pg/mL (0-449) Total Protein 7.9 g/dL (6.4-8.2) Albumin 3.4 g/dL (3.4-5.0) Albumin/Globulin Ratio 0.8 (1.0-1.7) Thyroid Stimulating Hormone (TSH) 3.054 uIU/mL (0.358-3.74) Urine Collection Type Void Urine Color Yellow Urine Clarity Clear Urine pH 5.5 Urine Specific [place] 1.015 Urine Protein 100 mg/dL (NEG-TRACE) Urine Glucose (UA) Negative mg/dL (NEG) Urine Ketones (Stick) Trace mg/dL (NEG) Urine Blood Moderate (NEG) Urine Nitrite Negative (NEG) Urine Bilirubin Negative (NEG) Urine Urobilinogen Dipstick 0.2 mg/dL (0.2 mg/dL) Urine Leukocyte Esterase Moderate (NEG) Urine RBC 11-20 /HPF (0-2) Urine WBC >40 /HPF (0-4) Urine Squamous Epithelial Cells Mod /LPF Urine Bacteria Many /HPF (0-FEW) Urine Mucus Mod /LPF Assessment/Plan Assessment/Plan 81 yo female who presents with failure to thrive and we were consulted for anemia and thrombocytopenia. 1. Anemia 2. Thrombocytopenia She states that she has not seen a doctor in many years and this could be chronic or it could be new. There are no other labs that are available at this time to compare. Would check iron studies, b12, folic acid, retic count, hepatitis, hiv. Tsh was already checked and ok. For now would start with an ultrasound of her abdomen to evaluate her liver and spleen size. 3. Weight loss. This seems more like failure to thrive and not that she is eating and losing weight. She has no desire to prepare food. If no other etiology of her weight loss is found, could consider ct scans of her c/a/p to look for occult malignancy, but I feel she may have other explanations for her weight loss ESTEE HEWITT MD Apr 14, 2017 14:34
[2017-04-14] MEDS ORDERED: POLYVINYL ALCOHOL 1.4% OPHTH SOLUTION 15ML BOTTLE. OU PRN (15:00)
[2017-04-14 15:29] VITALS: BP 124/54
[2017-04-14 15:48] LABS: % SAT IRON 29 % (15-34); IRON,SERUM 59 ug/dL (50-170)
--- NOTE | 2017-04-14 15:51 | PDOC2 ---
NEUROLOGY CONSULT Date of Admission Date of Admission DATE: 04/14/17 TIME: 15:42 Reason for Consult Reason for Consult: altered mental status Referring Physician Referring Physician: Dr. Lopez Source Source: Chart review, Patient History of Present Illness History of Present Illness The patient is an 81-year-old right-handed female basically admitted for failure to thrive. According the patient's niece, they have been looking in on her and helping her with shopping, but she repaired her own meal as recently as 2 nights ago. She gave up driving at the beginning of the year. She still pays her own bills, with a little bit of help from them. She has been living on her own. She does not like to see doctors. She did see Dr. Phelps at [facility] who recommended iron pills, but she refused to take those. There is no history of stroke, seizure, or head injury. She has told others that there are snakes in her home. Past Medical History Heme/Onc: Anemia NOS, Cancer (colorectal) Psych: Depression Past Surgical History Past Surgical History: Colectomy Family History Family History: CAD Social History Social History Single, no tobacco or alcohol Current Medications Current Medications Current Medications Sodium Chloride 1,000 ml @ 1,000 mls/hr Q1H IV Last administered on 04/13/17 16:13; Start 04/13/17 at 15:30; Stop 04/13/17 at 16:29; Status DC Sodium Chloride (Normal Saline Flush) 10 ml QSHIFT PRN IV AFTER MEDS AND BLOOD DRAWS Last administered on 04/13/17 16:13; Start 04/13/17 at 15:15 Ondansetron HCl (Zofran) 4 mg PRN Q6HRS PRN IV NAUSEA/VOMITING, 1ST CHOICE; Start 04/13/17 at 19:00 Prochlorperazine Edisylate (Compazine) 10 mg PRN Q6HRS PRN IV NAUSEA/VOMITING, 2ND CHOICE; Start 04/13/17 at 19:00 Prochlorperazine (Compazine) 25 mg PRN Q12HR PRN [place] NAUSEA/VOMITING; Start 04/13 at 19:00 Al Hydroxide/Mg Hydroxide (Mylanta Plus Xs) 30 ml PRN Q3HRS PRN PO HEARTBURN / GAS; Start 04/13/17 at 19:00 Calcium Carbonate/ Glycine (Tums) 500 mg PRN Q3HRS PRN PO UPSET STOMACH; Start 04/13/17 at 19:00 Morphine Sulfate 1 mg PRN Q1HR PRN IV PAIN; Start 04/13/17 at 19:00 Acetaminophen/ Hydrocodone Bitart (Lortab 5/325) 1 tab PRN Q4HRS PRN PO MILD PAIN; Start 04/13/17 at 19:00 Acetaminophen (Tylenol) 650 mg PRN Q6HRS PRN PO Headaches, Temp > 101.5F; Start 04/13/17 at 19:00 Amino Acids/ Glycerin/ Electrolytes 1,000 ml @ 80 mls/hr [id number] IV Last administered on 04/14/17t 10:08; Start 04/13/17 at 21:00 Enoxaparin Sodium (Lovenox 30mg Syringe) 30 mg DAILY SQ ; Start 04/14/17 at 09:00 ; Stop 04/14/17 at 14:34; Status DC Pneumococcal Polyvalent Vaccine (Do NOT chart on this placeholder) 1 each 1X ONCE MC ; Start 04/13/17 at 22:30; Stop 04/13/17 at 22:31; Status UNV Pneumococcal Polyvalent Vaccine (Pneumovax 23) 0.5 ml ONCE ONCE VAX IM ; Start 04/14/17 at 09:00; Stop 04/14/17 at 09:01; Status DC Artificial Tears (Artificial Tears) 1 drop PRN Q15MIN PRN OU DRY EYE; Start 04/14/17 at 15:00 Allergies Allergies: Coded Allergies: No Known Drug Allergies (Unverified , 04/13/17) ROS Review of System Patient denies fevers, chills, weight loss, dyspnea, angina, abdominal pain, change in bowels, or dysuria. 14 point review of systems is negative. Physical Exam Physical Examination PHYSICAL EXAMINATION: Vital signs: see above. General appearance is normal and in no acute distress. HEENT: Normocephalic and nontraumatic. Eyes, nose, ears, and throat are unremarkable. Neck is supple. No lymphadenopathy. No bruits are heard over the carotid artery. No crepitus. NEUROLOGICAL EXAMINATION: Mental Status Examination: Alert. Oriented to place, and person, but says that it is 11 June. Answers questions and follows commends. Pupils are equal round and reactive to light and accommodation. Extraocular movements are intact. Visual field exam shows no defect on the direct confrontation. No motor or sensory deficits on the facial exam. Uvula in the midline and the soft palate elevated symmetrically. No deviation of the tongue to any direction. Gross hearing is normal. Shoulder shrug normal. Muscle tone is normal. Muscle strength is 4/5. Deep tendon reflexes are 2+ all around. Plantar reflex is with flexion response bilaterally. [id number] test performance is accurate. Alternative movements are accurate. Romberg test is negative. Gait is a little unsteady. Sensory exam shows no deficits. No cerebellar signs are elicited. Vitals VITALS Vital Signs Date Time Temp Pulse Resp B/P (MAP) Pulse Ox O2 Delivery O2 Flow Rate FiO2 04/14/17 15:29 97.8 60 20 124/54 (77) 95 Nasal Cannula 2.0 97.8 Labs Labs Laboratory Tests Test 04/13/17 15:35 04/13/17 19:10 04/14/17 07:30 White Blood Count 3.5 x10^3/uL (4.0-11.0) 3.6 x10^3/uL (4.0-11.0) Red Blood Count 3.75 x10^6/uL (3.50-5.40) 3.29 x10^6/uL (3.50-5.40) Hemoglobin 10.7 g/dL (12.0-15.5) 9.5 g/dL (12.0-15.5) Hematocrit 32.3 % (36.0-47.0) 28.1 % (36.0-47.0) Mean Corpuscular Volume 86 fL (79-100) 85 fL (79-100) Mean Corpuscular Hemoglobin 29 pg (25-35) 29 pg (25-35) Mean Corpuscular Hemoglobin Concent 33 g/dL (31-37) 34 g/dL (31-37) Red Cell Distribution Width 17.4 % (11.5-14.5) 17.3 % (11.5-14.5) Platelet Count 81 x10^3/uL (140-400) 71 x10^3/uL (140-400) Neutrophils (%) (Auto) 70 % (31-73) 73 % (31-73) Lymphocytes (%) (Auto) 13 % (24-48) 11 % (24-48) Monocytes (%) (Auto) 17 % (0-9) 15 % (0-9) Eosinophils (%) (Auto) 0 % (0-3) 0 % (0-3) Basophils (%) (Auto) 0 % (0-3) 0 % (0-3) Neutrophils # (Auto) 2.5 x10^3uL (1.8-7.7) 2.6 x10^3uL (1.8-7.7) Lymphocytes # (Auto) 0.5 x10^3/uL (1.0-4.8) 0.4 x10^3/uL (1.0-4.8) Monocytes # (Auto) 0.6 x10^3/uL (0.0-1.1) 0.6 x10^3/uL (0.0-1.1) Eosinophils # (Auto) 0.0 x10^3/uL (0.0-0.7) 0.0 x10^3/uL (0.0-0.7) Basophils # (Auto) 0.0 x10^3/uL (0.0-0.2) 0.0 x10^3/uL (0.0-0.2) Segmented Neutrophils % 66 % (35-66) Lymphocytes % 18 % (24-48) Monocytes % 12 % (0-10) Eosinophils % 1 % (0-5) Metamyelocytes % 3 % (0-0) Platelet Estimate Decreased (ADEQUATE) Anisocytosis Slight Erythrocyte Sedimentation Rate 62 (0-25) Sodium Level 143 mmol/L (136-145) 142 mmol/L (136-145) Potassium Level 3.5 mmol/L (3.5-5.1) 3.8 mmol/L (3.5-5.1) Chloride Level 104 mmol/L (98-107) 109 mmol/L (98-107) Carbon Dioxide Level 25 mmol/L (21-32) 28 mmol/L (21-32) Anion Gap 14 (6-14) 5 (6-14) Blood Urea Nitrogen 26 mg/dL (7-20) 23 mg/dL (7-20) Creatinine 1.2 mg/dL (0.6-1.0) 0.8 mg/dL (0.6-1.0) Estimated GFR (Cockcroft-Gault) 43.2 69.0 BUN/Creatinine Ratio 22 (6-20) Glucose Level 103 mg/dL (70-99) 107 mg/dL (70-99) Lactic Acid Level 1.3 mmol/L (0.4-2.0) Calcium Level 9.0 mg/dL (8.5-10.1) 8.1 mg/dL (8.5-10.1) Magnesium Level 1.9 mg/dL (1.8-2.4) Total Bilirubin 0.6 mg/dL (0.2-1.0) Aspartate Amino Transf (AST/SGOT) 27 U/L (15-37) Alanine Aminotransferase (ALT/SGPT) 26 U/L (14-59) Alkaline Phosphatase 101 U/L (46-116) Ammonia < 10 mcmol/L (11-34) Creatine Kinase 50 U/L (26-192) Creatine Kinase MB (Mass) < 0.5 ng/mL (0.0-3.6) Creatine Kinase MB Relative Index % (0-4) Troponin I Quantitative 0.024 ng/mL (0.000-0.055) [id number]-Type Natriuretic Peptide 1155 pg/mL (0-449) Total Protein 7.9 g/dL (6.4-8.2) Albumin 3.4 g/dL (3.4-5.0) Albumin/Globulin Ratio 0.8 (1.0-1.7) Thyroid Stimulating Hormone (TSH) 3.054 uIU/mL (0.358-3.74) Urine Collection Type Void Urine Color Yellow Urine Clarity Clear Urine pH 5.5 Urine Specific [place] 1.015 Urine Protein 100 mg/dL (NEG-TRACE) Urine Glucose (UA) Negative mg/dL (NEG) Urine Ketones (Stick) Trace mg/dL (NEG) Urine Blood Moderate (NEG) Urine Nitrite Negative (NEG) Urine Bilirubin Negative (NEG) Urine Urobilinogen Dipstick 0.2 mg/dL (0.2 mg/dL) Urine Leukocyte Esterase Moderate (NEG) Urine RBC 11-20 /HPF (0-2) Urine WBC >40 /HPF (0-4) Urine Squamous Epithelial Cells Mod /LPF Urine Bacteria Many /HPF (0-FEW) Urine Mucus Mod /LPF Laboratory Tests Test 04/13/17 19:10 04/14/17 07:30 Urine Collection Type Void Urine Color Yellow Urine Clarity Clear Urine pH 5.5 Urine Specific [place] 1.015 Urine Protein 100 mg/dL (NEG-TRACE) Urine Glucose (UA) Negative mg/dL (NEG) Urine Ketones (Stick) Trace mg/dL (NEG) Urine Blood Moderate (NEG) Urine Nitrite Negative (NEG) Urine Bilirubin Negative (NEG) Urine Urobilinogen Dipstick 0.2 mg/dL (0.2 mg/dL) Urine Leukocyte Esterase Moderate (NEG) Urine RBC 11-20 /HPF (0-2) Urine WBC >40 /HPF (0-4) Urine Squamous Epithelial Cells Mod /LPF Urine Bacteria Many /HPF (0-FEW) Urine Mucus Mod /LPF White Blood Count 3.6 x10^3/uL (4.0-11.0) Red Blood Count 3.29 x10^6/uL (3.50-5.40) Hemoglobin 9.5 g/dL (12.0-15.5) Hematocrit 28.1 % (36.0-47.0) Mean Corpuscular Volume 85 fL (79-100) Mean Corpuscular Hemoglobin 29 pg (25-35) Mean Corpuscular Hemoglobin Concent 34 g/dL (31-37) Red Cell Distribution Width 17.3 % (11.5-14.5) Platelet Count 71 x10^3/uL (140-400) Neutrophils (%) (Auto) 73 % (31-73) Lymphocytes (%) (Auto) 11 % (24-48) Monocytes (%) (Auto) 15 % (0-9) Eosinophils (%) (Auto) 0 % (0-3) Basophils (%) (Auto) 0 % (0-3) Neutrophils # (Auto) 2.6 x10^3uL (1.8-7.7) Lymphocytes # (Auto) 0.4 x10^3/uL (1.0-4.8) Monocytes # (Auto) 0.6 x10^3/uL (0.0-1.1) Eosinophils # (Auto) 0.0 x10^3/uL (0.0-0.7) Basophils # (Auto) 0.0 x10^3/uL (0.0-0.2) Sodium Level 142 mmol/L (136-145) Potassium Level 3.8 mmol/L (3.5-5.1) Chloride Level 109 mmol/L (98-107) Carbon Dioxide Level 28 mmol/L (21-32) Anion Gap 5 (6-14) Blood Urea Nitrogen 23 mg/dL (7-20) Creatinine 0.8 mg/dL (0.6-1.0) Estimated GFR (Cockcroft-Gault) 69.0 Glucose Level 107 mg/dL (70-99) Calcium Level 8.1 mg/dL (8.5-10.1) Images Images CT head: The calvarium appears unremarkable. The visualized paranasal sinuses appear normal. There is some mild underlying atrophy. There is increased lucency in the deep white matter compatible with microvascular disease. No subdural or epidural hematoma is seen. No mass or midline shift is seen. There is no evidence of hemorrhage. Acute finding is not seen. IMPRESSION: Chronic changes. No acute finding seen Assessment/Plan Assessment/Plan Impression: Basically a failure to thrive. She may have had dementia starting near the beginning the year. This would be a mild dementia. She may just be malnourished and she does have some anemia but no other significant metabolic derangements. Recommendations: Agree with laboratory studies as ordered Supportive care Consider trial of donepezil Consider [facility] Niece is concerned about toxicities in the home which she will check out. I discussed my findings with the patient, and her niece by phone. Thank you for letting me help with the patient's care. MANNY SALCIDO MD Apr 14, 2017 15:51
[2017-04-14 19:00] VITALS: BP 142/57
[2017-04-14 23:00] VITALS: BP 144/58
[2017-04-15 03:32] VITALS: BP 125/38
[2017-04-15] MEDS: AMINO AC 3%/ELECTROLYTE/GLYCER 1,000 ML IV SCH ×2 (04:23→23:43)
[2017-04-15 07:15] VITALS: BP 125/39
--- NOTE | 2017-04-15 08:23 | RAD ---
Indication: Abdominal pain. Pancreas is unremarkable. Aorta is nonaneurysmal. IVC is unremarkable. The liver is normal in size. No liver mass is identified. The gallbladder is without stones or sludge. No wall thickening is seen. No biliary ductal dilatation is identified. The spleen is normal in size. The kidneys are unremarkable. No calculi or hydronephrosis is seen. There is no ascites. Impression: Unremarkable abdominal ultrasound.
[2017-04-15] MEDS ORDERED: PNEUMOC CONJ VACC 23-VALENT 0.5 ML VIAL. VAX IM ONE (09:00)
[2017-04-15 10:34] VITALS: BP 114/38
--- NOTE | 2017-04-15 11:01 | PDOC ---
PROGRESS NOTES Subjective Subjective pt seen for anemia and thrombocytopenia She states she is doing better than yesterday. She ate her breakfast. Objective Objective Vital Signs Date Time Temp Pulse Resp B/P (MAP) Pulse Ox O2 Delivery O2 Flow Rate FiO2 04/15/17 10:34 97.9 64 20 114/38 (63) 97 Room Air 97.9 04/14/17 20:00 2.0 Intake and Output 04/15/17 07:00 Intake Total 1050 ml Output Total 1001 ml Balance 49 ml Intake Oral 1050 ml Output Urine Total 1000 ml Urine/Stool Mix 1 ml # Voids 1 # Bowel Movements 3 Physical Exam Abdomen: Normal bowel sounds, Soft Heart: Regular rate, Normal S1, Normal S2 General: Alert, Oriented X3, Cooperative HEENT: Atraumatic, PERRLA Lungs: Clear to auscultation Psych/Mental Status: Mental status NL Assessment Assessment Problems Medical Problems: (1) Dehydration Status: Acute (2) Depression Status: Acute (3) Failure to thrive Status: Acute (4) Malnutrition Status: Acute Plan Plan of Care 1. Anemia 2. Thrombocytopenia Her iron studies look like anemia of chronic disease. We are still awaiting her ferritin level. B12 and folic acid levels are also pending. Her US abdomen was unremarkable. Would continue to monitor. If she had any previous cbc's that would be helpful to know if this is new or old. 3. Failure to Thrive. Management as per primary team Comment Review of Relevant I have reviewed the following items mike (where applicable) has been applied. Labs Laboratory Tests Test 04/13/17 15:35 04/13/17 19:10 04/14/17 07:30 White Blood Count 3.5 x10^3/uL (4.0-11.0) 3.6 x10^3/uL (4.0-11.0) Red Blood Count 3.75 x10^6/uL (3.50-5.40) 3.29 x10^6/uL (3.50-5.40) Hemoglobin 10.7 g/dL (12.0-15.5) 9.5 g/dL (12.0-15.5) Hematocrit 32.3 % (36.0-47.0) 28.1 % (36.0-47.0) Mean Corpuscular Volume 86 fL (79-100) 85 fL (79-100) Mean Corpuscular Hemoglobin 29 pg (25-35) 29 pg (25-35) Mean Corpuscular Hemoglobin Concent 33 g/dL (31-37) 34 g/dL (31-37) Red Cell Distribution Width 17.4 % (11.5-14.5) 17.3 % (11.5-14.5) Platelet Count 81 x10^3/uL (140-400) 71 x10^3/uL (140-400) Neutrophils (%) (Auto) 70 % (31-73) 73 % (31-73) Lymphocytes (%) (Auto) 13 % (24-48) 11 % (24-48) Monocytes (%) (Auto) 17 % (0-9) 15 % (0-9) Eosinophils (%) (Auto) 0 % (0-3) 0 % (0-3) Basophils (%) (Auto) 0 % (0-3) 0 % (0-3) Neutrophils # (Auto) 2.5 x10^3uL (1.8-7.7) 2.6 x10^3uL (1.8-7.7) Lymphocytes # (Auto) 0.5 x10^3/uL (1.0-4.8) 0.4 x10^3/uL (1.0-4.8) Monocytes # (Auto) 0.6 x10^3/uL (0.0-1.1) 0.6 x10^3/uL (0.0-1.1) Eosinophils # (Auto) 0.0 x10^3/uL (0.0-0.7) 0.0 x10^3/uL (0.0-0.7) Basophils # (Auto) 0.0 x10^3/uL (0.0-0.2) 0.0 x10^3/uL (0.0-0.2) Segmented Neutrophils % 66 % (35-66) Lymphocytes % 18 % (24-48) Monocytes % 12 % (0-10) Eosinophils % 1 % (0-5) Metamyelocytes % 3 % (0-0) Platelet Estimate Decreased (ADEQUATE) Anisocytosis Slight Erythrocyte Sedimentation Rate 62 (0-25) Sodium Level 143 mmol/L (136-145) 142 mmol/L (136-145) Potassium Level 3.5 mmol/L (3.5-5.1) 3.8 mmol/L (3.5-5.1) Chloride Level 104 mmol/L (98-107) 109 mmol/L (98-107) Carbon Dioxide Level 25 mmol/L (21-32) 28 mmol/L (21-32) Anion Gap 14 (6-14) 5 (6-14) Blood Urea Nitrogen 26 mg/dL (7-20) 23 mg/dL (7-20) Creatinine 1.2 mg/dL (0.6-1.0) 0.8 mg/dL (0.6-1.0) Estimated GFR (Cockcroft-Gault) 43.2 69.0 BUN/Creatinine Ratio 22 (6-20) Glucose Level 103 mg/dL (70-99) 107 mg/dL (70-99) Lactic Acid Level 1.3 mmol/L (0.4-2.0) Calcium Level 9.0 mg/dL (8.5-10.1) 8.1 mg/dL (8.5-10.1) Magnesium Level 1.9 mg/dL (1.8-2.4) Total Bilirubin 0.6 mg/dL (0.2-1.0) Aspartate Amino Transf (AST/SGOT) 27 U/L (15-37) Alanine Aminotransferase (ALT/SGPT) 26 U/L (14-59) Alkaline Phosphatase 101 U/L (46-116) Ammonia < 10 mcmol/L (11-34) Creatine Kinase 50 U/L (26-192) Creatine Kinase MB (Mass) < 0.5 ng/mL (0.0-3.6) Creatine Kinase MB Relative Index % (0-4) Troponin I Quantitative 0.024 ng/mL (0.000-0.055) PU-[id number]-Type Natriuretic Peptide 1155 pg/mL (0-449) Total Protein 7.9 g/dL (6.4-8.2) Albumin 3.4 g/dL (3.4-5.0) Albumin/Globulin Ratio 0.8 (1.0-1.7) Thyroid Stimulating Hormone (TSH) 3.054 uIU/mL (0.358-3.74) Urine Collection Type Void Urine Color Yellow Urine Clarity Clear Urine pH 5.5 Urine Specific [place] 1.015 Urine Protein 100 mg/dL (NEG-TRACE) Urine Glucose (UA) Negative mg/dL (NEG) Urine Ketones (Stick) Trace mg/dL (NEG) Urine Blood Moderate (NEG) Urine Nitrite Negative (NEG) Urine Bilirubin Negative (NEG) Urine Urobilinogen Dipstick 0.2 mg/dL (0.2 mg/dL) Urine Leukocyte Esterase Moderate (NEG) Urine RBC 11-20 /HPF (0-2) Urine WBC >40 /HPF (0-4) Urine Squamous Epithelial Cells Mod /LPF Urine Bacteria Many /HPF (0-FEW) Urine Mucus Mod /LPF Reticulocyte Count (auto) 0.5 % (0.5-2.5) Iron Level 59 ug/dL (50-170) Total Iron Binding Capacity 204 ug/dL (250-450) Iron Saturation 29 % (15-34) Microbiology 04/13/17 Blood Culture - Preliminary, Resulted NO GROWTH AFTER 1 DAY 04/13/17 Urine Culture - Preliminary, Resulted 04/13/17 Urine Culture Result 1 ([place]) - Preliminary, Resulted Medications Current Medications Sodium Chloride 1,000 ml @ 1,000 mls/hr Q1H IV Last administered on 04/13/17 16:13; Start 04/13/17 at 15:30; Stop 04/13/17 at 16:29; Status DC Sodium Chloride (Normal Saline Flush) 10 ml QSHIFT PRN IV AFTER MEDS AND BLOOD DRAWS Last administered on 04/13/17 16:13; Start 04/13/17 at 15:15 Ondansetron HCl (Zofran) 4 mg PRN Q6HRS PRN IV NAUSEA/VOMITING, 1ST CHOICE; Start 04/13/17 at 19:00 Prochlorperazine Edisylate (Compazine) 10 mg PRN Q6HRS PRN IV NAUSEA/VOMITING, 2ND CHOICE; Start 04/13/17 at 19:00 Prochlorperazine (Compazine) 25 mg PRN Q12HR PRN [place] NAUSEA/VOMITING; Start 04/13 at 19:00 Al Hydroxide/Mg Hydroxide (Mylanta Plus Xs) 30 ml PRN Q3HRS PRN PO HEARTBURN / GAS; Start 04/13/17 at 19:00 Calcium Carbonate/ Glycine (Tums) 500 mg PRN Q3HRS PRN PO UPSET STOMACH; Start 04/13/17 at 19:00 Morphine Sulfate 1 mg PRN Q1HR PRN IV PAIN; Start 04/13/17 at 19:00 Acetaminophen/ Hydrocodone Bitart (Lortab 5/325) 1 tab PRN Q4HRS PRN PO MILD PAIN; Start 04/13/17 at 19:00 Acetaminophen (Tylenol) 650 mg PRN Q6HRS PRN PO Headaches, Temp > 101.5F; Start 04/13/17 at 19:00 Amino Acids/ Glycerin/ Electrolytes 1,000 ml @ 80 mls/hr [id number] IV Last administered on 04/15/17t 04:23; Start 04/13/17 at 21:00 Enoxaparin Sodium (Lovenox 30mg Syringe) 30 mg DAILY SQ ; Start 04/14/17 at 09:00 ; Stop 04/14/17 at 14:34; Status DC Pneumococcal Polyvalent Vaccine (Do NOT chart on this placeholder) 1 each 1X ONCE MC ; Start 04/13/17 at 22:30; Stop 04/13/17 at 22:31; Status UNV Pneumococcal Polyvalent Vaccine (Pneumovax 23) 0.5 ml ONCE ONCE VAX IM ; Start 04/14/17 at 09:00; Stop 04/14/17 at 16:59; Status DC Artificial Tears (Artificial Tears) 1 drop PRN Q15MIN PRN OU DRY EYE; Start 04/14/17 at 15:00 Pneumococcal Polyvalent Vaccine (Pneumovax 23) 0.5 ml ONCE ONCE VAX IM ; Start 04/15/17 at 09:00; Stop 04/15/17 at 09:01; Status DC Vitals/I & O Vital Sign - Last 24 Hours 04/14/17 04/14/17 04/14/17 04/14/17 11:10 15:29 19:00 20:00 Temp 97.7 97.8 97.5 97.7 97.8 97.5 Pulse 63 60 58 Resp 20 20 18 B/P (MAP) 125/51 (75) 124/54 (77) 142/57 (85) Pulse Ox 94 95 98 O2 Delivery Nasal Cannula Nasal Cannula Room Air Room Air O2 Flow Rate 2.0 2.0 2.0 04/14/17 04/15/17 04/15/1704/15/17 23:00 03:32 07:15 08:00 Temp 98.2 98.2 98.0 98.2 98.2 98.0 Pulse 53 47 55 Resp 18 20 20 B/P (MAP) 144/58 (86) 125/38 (67) 125/39 (67) Pulse Ox 95 95 95 O2 Delivery Room Air Room Air Room Air Room Air 04/15/17 10:34 Temp 97.9 97.9 Pulse 64 Resp 20 B/P (MAP) 114/38 (63) Pulse Ox 97 O2 Delivery Room Air Intake and Output 04/14/17 04/14/17 04/15/17 15:00 23:00 07:00 Intake Total 250 ml 650 ml 150 ml Output Total 1 ml 100 ml 900 ml Balance 249 ml 550 ml -750 ml ESTEE HEWITT MD Apr 15, 2017 11:01
--- NOTE | 2017-04-15 14:19 | PDOC ---
PROGRESS NOTES Chief Complaint Chief Complaint 1. FTT sxs 2. 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 Anemia, normocytic, probably from chronic disease 4. Hx Yosvany and colon ca, limited (15vyrs ago) 5. Undernourished/undernutrition - BMI 15.4 6. BASHIR, vaso motor 7. Poor PO 8. Bradycardia 9. Thrombocytopnia - new dx *(At least to pt) History of Present Illness History of Present Illness Brushing hair at the mirror in the bathroom VSS Notes reviewed DW PT Yazmin Pt confused. want to talk to police about some bullets? On IV Procalamne DW RN Vitals Vitals Vital Signs Date Time Temp Pulse Resp B/P (MAP) Pulse Ox O2 Delivery O2 Flow Rate FiO2 04/15/17 10:34 97.9 64 20 114/38 (63) 97 Room Air 97.9 04/14/17 20:00 2.0 Physical Exam General: Alert, Oriented X3, Cooperative Heart: Regular rate, Normal S1, Normal S2 Lungs: Clear Abdomen: Normal bowel sounds, Soft Extremities: No clubbing, No cyanosis Skin: No rashes, No breakdown, Other (miniaml subQ tissue) Review of Systems Review of Systems co confusion co weakness and anxiety Assessment and Plan Assessmemt and Plan Problems Medical Problems: (1) Dehydration Status: Acute (2) Depression Status: Acute (3) Failure to thrive Status: Acute (4) Malnutrition Status: Acute 1. FTT sxs 2. 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 Anemia, normocytic, probably from chronic disease 4. Hx Yosvany and colon ca, limited (15vyrs ago) 5. Undernourished/undernutrition - BMI 15.4 6. BASHIR, vaso motor 7. Poor PO 8. Bradycardia 9. Thrombocytopnia - new dx *(At least to pt) Plan Iron tx PTOT Home meds Encourage po SNU and or LTC soon? Problems: Comment Review of Relevant I have reviewed the following items mike (where applicable) has been applied. Labs Laboratory Tests Test 04/13/17 15:35 04/13/17 19:10 04/14/17 07:30 White Blood Count 3.5 x10^3/uL (4.0-11.0) 3.6 x10^3/uL (4.0-11.0) Red Blood Count 3.75 x10^6/uL (3.50-5.40) 3.29 x10^6/uL (3.50-5.40) Hemoglobin 10.7 g/dL (12.0-15.5) 9.5 g/dL (12.0-15.5) Hematocrit 32.3 % (36.0-47.0) 28.1 % (36.0-47.0) Mean Corpuscular Volume 86 fL (79-100) 85 fL (79-100) Mean Corpuscular Hemoglobin 29 pg (25-35) 29 pg (25-35) Mean Corpuscular Hemoglobin Concent 33 g/dL (31-37) 34 g/dL (31-37) Red Cell Distribution Width 17.4 % (11.5-14.5) 17.3 % (11.5-14.5) Platelet Count 81 x10^3/uL (140-400) 71 x10^3/uL (140-400) Neutrophils (%) (Auto) 70 % (31-73) 73 % (31-73) Lymphocytes (%) (Auto) 13 % (24-48) 11 % (24-48) Monocytes (%) (Auto) 17 % (0-9) 15 % (0-9) Eosinophils (%) (Auto) 0 % (0-3) 0 % (0-3) Basophils (%) (Auto) 0 % (0-3) 0 % (0-3) Neutrophils # (Auto) 2.5 x10^3uL (1.8-7.7) 2.6 x10^3uL (1.8-7.7) Lymphocytes # (Auto) 0.5 x10^3/uL (1.0-4.8) 0.4 x10^3/uL (1.0-4.8) Monocytes # (Auto) 0.6 x10^3/uL (0.0-1.1) 0.6 x10^3/uL (0.0-1.1) Eosinophils # (Auto) 0.0 x10^3/uL (0.0-0.7) 0.0 x10^3/uL (0.0-0.7) Basophils # (Auto) 0.0 x10^3/uL (0.0-0.2) 0.0 x10^3/uL (0.0-0.2) Segmented Neutrophils % 66 % (35-66) Lymphocytes % 18 % (24-48) Monocytes % 12 % (0-10) Eosinophils % 1 % (0-5) Metamyelocytes % 3 % (0-0) Platelet Estimate Decreased (ADEQUATE) Anisocytosis Slight Erythrocyte Sedimentation Rate 62 (0-25) Sodium Level 143 mmol/L (136-145) 142 mmol/L (136-145) Potassium Level 3.5 mmol/L (3.5-5.1) 3.8 mmol/L (3.5-5.1) Chloride Level 104 mmol/L (98-107) 109 mmol/L (98-107) Carbon Dioxide Level 25 mmol/L (21-32) 28 mmol/L (21-32) Anion Gap 14 (6-14) 5 (6-14) Blood Urea Nitrogen 26 mg/dL (7-20) 23 mg/dL (7-20) Creatinine 1.2 mg/dL (0.6-1.0) 0.8 mg/dL (0.6-1.0) Estimated GFR (Cockcroft-Gault) 43.2 69.0 BUN/Creatinine Ratio 22 (6-20) Glucose Level 103 mg/dL (70-99) 107 mg/dL (70-99) Lactic Acid Level 1.3 mmol/L (0.4-2.0) Calcium Level 9.0 mg/dL (8.5-10.1) 8.1 mg/dL (8.5-10.1) Magnesium Level 1.9 mg/dL (1.8-2.4) Total Bilirubin 0.6 mg/dL (0.2-1.0) Aspartate Amino Transf (AST/SGOT) 27 U/L (15-37) Alanine Aminotransferase (ALT/SGPT) 26 U/L (14-59) Alkaline Phosphatase 101 U/L (46-116) Ammonia < 10 mcmol/L (11-34) Creatine Kinase 50 U/L (26-192) Creatine Kinase MB (Mass) < 0.5 ng/mL (0.0-3.6) Creatine Kinase MB Relative Index % (0-4) Troponin I Quantitative 0.024 ng/mL (0.000-0.055) DZ-[id number]-Type Natriuretic Peptide 1155 pg/mL (0-449) Total Protein 7.9 g/dL (6.4-8.2) Albumin 3.4 g/dL (3.4-5.0) Albumin/Globulin Ratio 0.8 (1.0-1.7) Thyroid Stimulating Hormone (TSH) 3.054 uIU/mL (0.358-3.74) Urine Collection Type Void Urine Color Yellow Urine Clarity Clear Urine pH 5.5 Urine Specific [place] 1.015 Urine Protein 100 mg/dL (NEG-TRACE) Urine Glucose (UA) Negative mg/dL (NEG) Urine Ketones (Stick) Trace mg/dL (NEG) Urine Blood Moderate (NEG) Urine Nitrite Negative (NEG) Urine Bilirubin Negative (NEG) Urine Urobilinogen Dipstick 0.2 mg/dL (0.2 mg/dL) Urine Leukocyte Esterase Moderate (NEG) Urine RBC 11-20 /HPF (0-2) Urine WBC >40 /HPF (0-4) Urine Squamous Epithelial Cells Mod /LPF Urine Bacteria Many /HPF (0-FEW) Urine Mucus Mod /LPF Reticulocyte Count (auto) 0.5 % (0.5-2.5) Iron Level 59 ug/dL (50-170) Total Iron Binding Capacity 204 ug/dL (250-450) Iron Saturation 29 % (15-34) Microbiology 04/13/17 Blood Culture - Preliminary, Resulted NO GROWTH AFTER 1 DAY 04/13/17 Urine Culture - Preliminary, Resulted 04/13/17 Urine Culture Result 1 ([place]) - Preliminary, Resulted Medications Current Medications Sodium Chloride 1,000 ml @ 1,000 mls/hr Q1H IV Last administered on 04/13/17 16:13; Start 04/13/17 at 15:30; Stop 04/13/17 at 16:29; Status DC Sodium Chloride (Normal Saline Flush) 10 ml QSHIFT PRN IV AFTER MEDS AND BLOOD DRAWS Last administered on 04/13/17 16:13; Start 04/13/17 at 15:15 Ondansetron HCl (Zofran) 4 mg PRN Q6HRS PRN IV NAUSEA/VOMITING, 1ST CHOICE; Start 04/13/17 at 19:00 Prochlorperazine Edisylate (Compazine) 10 mg PRN Q6HRS PRN IV NAUSEA/VOMITING, 2ND CHOICE; Start 04/13/17 at 19:00 Prochlorperazine (Compazine) 25 mg PRN Q12HR PRN [place] NAUSEA/VOMITING; Start 04/13 at 19:00 Al Hydroxide/Mg Hydroxide (Mylanta Plus Xs) 30 ml PRN Q3HRS PRN PO HEARTBURN / GAS; Start 04/13/17 at 19:00 Calcium Carbonate/ Glycine (Tums) 500 mg PRN Q3HRS PRN PO UPSET STOMACH; Start 04/13/17 at 19:00 Morphine Sulfate 1 mg PRN Q1HR PRN IV PAIN; Start 04/13/17 at 19:00 Acetaminophen/ Hydrocodone Bitart (Lortab 5/325) 1 tab PRN Q4HRS PRN PO MILD PAIN; Start 04/13/17 at 19:00 Acetaminophen (Tylenol) 650 mg PRN Q6HRS PRN PO Headaches, Temp > 101.5F; Start 04/13/17 at 19:00 Amino Acids/ Glycerin/ Electrolytes 1,000 ml @ 80 mls/hr [id number] IV Last administered on 04/15/17t 04:23; Start 04/13/17 at 21:00 Enoxaparin Sodium (Lovenox 30mg Syringe) 30 mg DAILY SQ ; Start 04/14/17 at 09:00 ; Stop 04/14/17 at 14:34; Status DC Pneumococcal Polyvalent Vaccine (Do NOT chart on this placeholder) 1 each 1X ONCE MC ; Start 04/13/17 at 22:30; Stop 04/13/17 at 22:31; Status UNV Pneumococcal Polyvalent Vaccine (Pneumovax 23) 0.5 ml ONCE ONCE VAX IM ; Start 04/14/17 at 09:00; Stop 04/14/17 at 16:59; Status DC Artificial Tears (Artificial Tears) 1 drop PRN Q15MIN PRN OU DRY EYE; Start 04/14/17 at 15:00 Pneumococcal Polyvalent Vaccine (Pneumovax 23) 0.5 ml ONCE ONCE VAX IM ; Start 04/15/17 at 09:00; Stop 04/15/17 at 09:01; Status DC Vitals/I & O Vital Sign - Last 24 Hours 04/14/17 04/14/17 04/14/17 04/14/17 15:29 19:00 20:00 23:00 Temp 97.8 97.5 98.2 97.8 97.5 98.2 Pulse 60 58 53 Resp 20 18 18 B/P (MAP) 124/54 (77) 142/57 (85) 144/58 (86) Pulse Ox 95 98 95 O2 Delivery Nasal Cannula Room Air Room Air Room Air O2 Flow Rate 2.0 2.0 04/15/17 04/15/17 04/15/17 04/15/17 03:32 07:15 08:00 10:34 Temp 98.2 98.0 97.9 98.2 98.0 97.9 Pulse 47 55 64 Resp 20 20 20 B/P (MAP) 125/38 (67) 125/39 (67) 114/38 (63) Pulse Ox 95 95 97 O2 Delivery Room Air Room Air Room Air Room Air Intake and Output 04/14/17 04/14/17 04/15/17 15:00 23:00 07:00 Intake Total 250 ml 650 ml 150 ml Output Total 1 ml 100 ml 900 ml Balance 249 ml 550 ml -750 ml JOSE EDUARDO MCALLISTER III DO Apr 15, 2017 14:19
--- NOTE | 2017-04-15 14:39 | PDOC ---
PROGRESS NOTES Assessment Problems Medical Problems: (1) Dehydration Status: Acute (2) Depression Status: Acute (3) Failure to thrive Status: Acute (4) Malnutrition Status: Acute Basically a failure to thrive. She may have had dementia starting near the beginning the year. This would be a mild dementia. She may just be malnourished and she does have some anemia but no other significant metabolic derangements. Elevated sedimentation rate, doubt temporal arteritis. Plan Await rest of laboratory studies as ordered Supportive care Consider trial of donepezil after acute hospital stay Consider [facility] I discussed my findings with the patient and family Subjective Family says patient is better today, still some Objective Vital Signs Date Time Temp Pulse Resp B/P (MAP) Pulse Ox O2 Delivery O2 Flow Rate FiO2 04/15/17 10:34 97.9 64 20 114/38 (63) 97 Room Air 97.9 04/14/17 20:00 2.0 Intake and Output 04/15/17 07:00 Intake Total 1050 ml Output Total 1001 ml Balance 49 ml Intake Oral 1050 ml Output Urine Total 1000 ml Urine/Stool Mix 1 ml # Voids 1 # Bowel Movements 3 PHYSICAL EXAM Alert. Oriented to place and person. Knows month and year, not date or day PERRL. EOMI. CN: no focal findings. Muscle tone: normal. Muscle strength: 5/5 DTR: 2+ Plantar reflex: Flexor. Also has bilateral grasp reflexes Gait: not examined in bed. Sensory exam: no abnormal findings. No cerebellar signs elicited. Review of Relevant I have reviewed the following items mike (where applicable) has been applied. Labs Laboratory Tests Test 04/13/17 15:35 04/13/17 19:10 04/14/17 07:30 White Blood Count 3.5 x10^3/uL (4.0-11.0) 3.6 x10^3/uL (4.0-11.0) Red Blood Count 3.75 x10^6/uL (3.50-5.40) 3.29 x10^6/uL (3.50-5.40) Hemoglobin 10.7 g/dL (12.0-15.5) 9.5 g/dL (12.0-15.5) Hematocrit 32.3 % (36.0-47.0) 28.1 % (36.0-47.0) Mean Corpuscular Volume 86 fL (79-100) 85 fL (79-100) Mean Corpuscular Hemoglobin 29 pg (25-35) 29 pg (25-35) Mean Corpuscular Hemoglobin Concent 33 g/dL (31-37) 34 g/dL (31-37) Red Cell Distribution Width 17.4 % (11.5-14.5) 17.3 % (11.5-14.5) Platelet Count 81 x10^3/uL (140-400) 71 x10^3/uL (140-400) Neutrophils (%) (Auto) 70 % (31-73) 73 % (31-73) Lymphocytes (%) (Auto) 13 % (24-48) 11 % (24-48) Monocytes (%) (Auto) 17 % (0-9) 15 % (0-9) Eosinophils (%) (Auto) 0 % (0-3) 0 % (0-3) Basophils (%) (Auto) 0 % (0-3) 0 % (0-3) Neutrophils # (Auto) 2.5 x10^3uL (1.8-7.7) 2.6 x10^3uL (1.8-7.7) Lymphocytes # (Auto) 0.5 x10^3/uL (1.0-4.8) 0.4 x10^3/uL (1.0-4.8) Monocytes # (Auto) 0.6 x10^3/uL (0.0-1.1) 0.6 x10^3/uL (0.0-1.1) Eosinophils # (Auto) 0.0 x10^3/uL (0.0-0.7) 0.0 x10^3/uL (0.0-0.7) Basophils # (Auto) 0.0 x10^3/uL (0.0-0.2) 0.0 x10^3/uL (0.0-0.2) Segmented Neutrophils % 66 % (35-66) Lymphocytes % 18 % (24-48) Monocytes % 12 % (0-10) Eosinophils % 1 % (0-5) Metamyelocytes % 3 % (0-0) Platelet Estimate Decreased (ADEQUATE) Anisocytosis Slight Erythrocyte Sedimentation Rate 62 (0-25) Sodium Level 143 mmol/L (136-145) 142 mmol/L (136-145) Potassium Level 3.5 mmol/L (3.5-5.1) 3.8 mmol/L (3.5-5.1) Chloride Level 104 mmol/L (98-107) 109 mmol/L (98-107) Carbon Dioxide Level 25 mmol/L (21-32) 28 mmol/L (21-32) Anion Gap 14 (6-14) 5 (6-14) Blood Urea Nitrogen 26 mg/dL (7-20) 23 mg/dL (7-20) Creatinine 1.2 mg/dL (0.6-1.0) 0.8 mg/dL (0.6-1.0) Estimated GFR (Cockcroft-Gault) 43.2 69.0 BUN/Creatinine Ratio 22 (6-20) Glucose Level 103 mg/dL (70-99) 107 mg/dL (70-99) Lactic Acid Level 1.3 mmol/L (0.4-2.0) Calcium Level 9.0 mg/dL (8.5-10.1) 8.1 mg/dL (8.5-10.1) Magnesium Level 1.9 mg/dL (1.8-2.4) Total Bilirubin 0.6 mg/dL (0.2-1.0) Aspartate Amino Transf (AST/SGOT) 27 U/L (15-37) Alanine Aminotransferase (ALT/SGPT) 26 U/L (14-59) Alkaline Phosphatase 101 U/L (46-116) Ammonia < 10 mcmol/L (11-34) Creatine Kinase 50 U/L (26-192) Creatine Kinase MB (Mass) < 0.5 ng/mL (0.0-3.6) Creatine Kinase MB Relative Index % (0-4) Troponin I Quantitative 0.024 ng/mL (0.000-0.055) RN-Fsb-H-Type Natriuretic Peptide 1155 pg/mL (0-449) Total Protein 7.9 g/dL (6.4-8.2) Albumin 3.4 g/dL (3.4-5.0) Albumin/Globulin Ratio 0.8 (1.0-1.7) Thyroid Stimulating Hormone (TSH) 3.054 uIU/mL (0.358-3.74) Urine Collection Type Void Urine Color Yellow Urine Clarity Clear Urine pH 5.5 Urine Specific [place] 1.015 Urine Protein 100 mg/dL (NEG-TRACE) Urine Glucose (UA) Negative mg/dL (NEG) Urine Ketones (Stick) Trace mg/dL (NEG) Urine Blood Moderate (NEG) Urine Nitrite Negative (NEG) Urine Bilirubin Negative (NEG) Urine Urobilinogen Dipstick 0.2 mg/dL (0.2 mg/dL) Urine Leukocyte Esterase Moderate (NEG) Urine RBC 11-20 /HPF (0-2) Urine WBC >40 /HPF (0-4) Urine Squamous Epithelial Cells Mod /LPF Urine Bacteria Many /HPF (0-FEW) Urine Mucus Mod /LPF Reticulocyte Count (auto) 0.5 % (0.5-2.5) Iron Level 59 ug/dL (50-170) Total Iron Binding Capacity 204 ug/dL (250-450) Iron Saturation 29 % (15-34) Microbiology 04/13/17 Blood Culture - Preliminary, Resulted NO GROWTH AFTER 1 DAY 04/13/17 Urine Culture - Preliminary, Resulted 04/13/17 Urine Culture Result 1 ([place]) - Preliminary, Resulted Medications Current Medications Sodium Chloride 1,000 ml @ 1,000 mls/hr Q1H IV Last administered on 04/13/17 16:13; Start 04/13/17 at 15:30; Stop 04/13/17 at 16:29; Status DC Sodium Chloride (Normal Saline Flush) 10 ml QSHIFT PRN IV AFTER MEDS AND BLOOD DRAWS Last administered on 04/13/17 16:13; Start 04/13/17 at 15:15 Ondansetron HCl (Zofran) 4 mg PRN Q6HRS PRN IV NAUSEA/VOMITING, 1ST CHOICE; Start 04/13/17 at 19:00 Prochlorperazine Edisylate (Compazine) 10 mg PRN Q6HRS PRN IV NAUSEA/VOMITING, 2ND CHOICE; Start 04/13/17 at 19:00 Prochlorperazine (Compazine) 25 mg PRN Q12HR PRN [place] NAUSEA/VOMITING; Start 04/13 at 19:00 Al Hydroxide/Mg Hydroxide (Mylanta Plus Xs) 30 ml PRN Q3HRS PRN PO HEARTBURN / GAS; Start 04/13/17 at 19:00 Calcium Carbonate/ Glycine (Tums) 500 mg PRN Q3HRS PRN PO UPSET STOMACH; Start 04/13/17 at 19:00 Morphine Sulfate 1 mg PRN Q1HR PRN IV PAIN; Start 04/13/17 at 19:00 Acetaminophen/ Hydrocodone Bitart (Lortab 5/325) 1 tab PRN Q4HRS PRN PO MILD PAIN; Start 04/13/17 at 19:00 Acetaminophen (Tylenol) 650 mg PRN Q6HRS PRN PO Headaches, Temp > 101.5F; Start 04/13/17 at 19:00 Amino Acids/ Glycerin/ Electrolytes 1,000 ml @ 80 mls/hr [id number] IV Last administered on 04/15/17t 04:23; Start 04/13/17 at 21:00 Enoxaparin Sodium (Lovenox 30mg Syringe) 30 mg DAILY SQ ; Start 04/14/17 at 09:00 ; Stop 04/14/17 at 14:34; Status DC Pneumococcal Polyvalent Vaccine (Do NOT chart on this placeholder) 1 each 1X ONCE MC ; Start 04/13/17 at 22:30; Stop 04/13/17 at 22:31; Status UNV Pneumococcal Polyvalent Vaccine (Pneumovax 23) 0.5 ml ONCE ONCE VAX IM ; Start 04/14/17 at 09:00; Stop 04/14/17 at 16:59; Status DC Artificial Tears (Artificial Tears) 1 drop PRN Q15MIN PRN OU DRY EYE; Start 04/14/17 at 15:00 Pneumococcal Polyvalent Vaccine (Pneumovax 23) 0.5 ml ONCE ONCE VAX IM ; Start 04/15/17 at 09:00; Stop 04/15/17 at 09:01; Status DC Vitals/I & O Vital Sign - Last 24 Hours 04/14/17 04/14/17 04/14/17 04/14/17 15:29 19:00 20:00 23:00 Temp 97.8 97.5 98.2 97.8 97.5 98.2 Pulse 60 58 53 Resp 20 18 18 B/P (MAP) 124/54 (77) 142/57 (85) 144/58 (86) Pulse Ox 95 98 95 O2 Delivery Nasal Cannula Room Air Room Air Room Air O2 Flow Rate 2.0 2.0 04/15/17 04/15/17 04/15/17 04/15/17 03:32 07:15 08:00 10:34 Temp 98.2 98.0 97.9 98.2 98.0 97.9 Pulse 47 55 64 Resp 20 20 20 B/P (MAP) 125/38 (67) 125/39 (67) 114/38 (63) Pulse Ox 95 95 97 O2 Delivery Room Air Room Air Room Air Room Air Intake and Output 04/14/17 04/14/17 04/15/17 15:00 23:00 07:00 Intake Total 250 ml 650 ml 150 ml Output Total 1 ml 100 ml 900 ml Balance 249 ml 550 ml -750 ml MANNY SALCIDO MD Apr 15, 2017 14:39
[2017-04-15 15:02] VITALS: BP 110/49
--- NOTE | 2017-04-15 17:31 | PDOC ---
Provider Note Provider Note Covering for Dr. Mathis Consult dictated. VIKAS PATEL MD Apr 15, 2017 17:31
[2017-04-15 19:10] VITALS: BP 124/50
[2017-04-15 21:12] LABS: HEP A IGM ABDY Negative (Negative)
[2017-04-15 22:50] VITALS: BP 137/58
[2017-04-16] VITALS (7 sets, daily range): BP systolic 122–146; BP diastolic 46–66
--- NOTE | 2017-04-16 04:44 | CONS ---
DATE OF CONSULTATION: HISTORY OF PRESENT ILLNESS: This is an 81-year-old white female who was brought into the Emergency Room because of change in level of consciousness. She is being worked up. She also is underweight with the low BMI. I have not been able to contact the family for further history. PHYSICAL EXAMINATION: VITAL SIGNS: The heart rate was 60 per minute and regular. The blood pressure is 120/60. LUNGS: Clear. HEART: Heart sounds are normal. LABORATORY DATA: An EKG taken in the Emergency Room showed a sinus bradycardia. There was a note that the heart rate at times drops to the 40s. A chest x-ray was normal. TSH was 3.054. IMPRESSION: Asymptomatic sinus bradycardia, is at the lower limits of normal. This is an 81-year-old patient who is not active. This could just be an adaptive mechanism for her. It could also be the early signs of the sick sinus syndrome. However, at this point, she is asymptomatic and not at the point of needing a permanent pacemaker. Also, further evaluation such as having her exercise to see whether she has the capacity to increase the rate would be inappropriate for her at this point. I would simply not be too concerned about sinus bradycardia at this point and take care of all her other medical problems. If her heart rate should drop in the 40s or if she should become symptomatic and if the family history wants us to be aggressive, a permanent pacemaker can be placed. At this point, she is not a candidate for any intervention. She is not on any drugs that would cause her to be bradycardic and would have to be discontinued and certainly avoid any drugs in the future that could cause bradycardia. I plan to obtain an echocardiogram. Thank you for asking us to see her. This patient is being seen for Dr. Mathis who will return to [facility] 04/18/2017. VIKAS PATEL MD DR: ANNETTE/kari JOB#: [id number] / [id number]
--- NOTE | 2017-04-16 08:43 | PDOC ---
Subjective: Subjective: Onc f/u- Pancytopenia Pt very fatigued, admits some depression/ discouragement. Poor appetite. No acute issues. Objective: Vital Signs: Vital Signs Date Time Temp Pulse Resp B/P (MAP) Pulse Ox O2 Delivery O2 Flow Rate FiO2 04/16/17 07:00 97.8 65 18 123/46 (71) 91 Room Air 97.8 Physical Exam: Extremities: No edema General: Alert, Oriented X3, Cooperative, No acute distress Lungs: Other (no respiratory distress) Psych/Mental Status: Mental status NL, Mood NL Labs/Imaging: CBC stable TSH, iron, hepatitis, HIV neg Abd U/S neg ESR 62 Retic 0.5 Folate, B12 pending Assessment/Plan A/P: 1. Mild pancytopenia. No previous labs for comparison. Could possibly be underlying MDS, but labs not severe enough for tx now anyway. Pt prefers to hold off on bmbx, historically has minimized her health care. - Plan to set up 1 mth hosp f/u to recheck labs and verify stability. - F/u folate, B12. Pt reports rarely eating fresh fruits/ veggies. Other lab eval and U/S neg so far. 2. Failure to Thrive. Management as per primary team, malignancy not suspected. Does appear high risk for depression contributing. MAEGAN GARG DO Apr 16, 2017 08:43
[2017-04-16] MEDS: AMINO AC 3%/ELECTROLYTE/GLYCER 1,000 ML IV SCH ×2 (08:45→22:30)
[2017-04-16 08:59] LABS: VITAMIN-B12 632 pg/mL (247-911)
[2017-04-16 09:20] LABS: FOLATE > 20.00 ng/ml (3.2-20.0)
--- NOTE | 2017-04-16 10:46 | PDOC ---
PROGRESS NOTES Assessment Problems Medical Problems: (1) Dehydration Status: Acute (2) Depression Status: Acute (3) Failure to thrive Status: Acute (4) Malnutrition Status: Acute Basically a failure to thrive. Mild Alzheimer's disease, rest of dementia lab work is negative Elevated sedimentation rate, doubt temporal arteritis. Plan Okay for discharge Trial of donepezil Consider snf Subjective No complaints, wants to go home Objective Vital Signs Date Time Temp Pulse Resp B/P (MAP) Pulse Ox O2 Delivery O2 Flow Rate FiO2 04/16/17 07:00 97.8 65 18 123/46 (71) 91 Room Air 97.8 Intake and Output 04/16/17 07:00 Intake Total 690 ml Output Total 1400 ml Balance -710 ml Intake Oral 690 ml Output Urine Total 1400 ml # Voids 6 PHYSICAL EXAM Alert. Oriented to place and person. Knows month and year, not date or day PERRL. EOMI. CN: no focal findings. Muscle tone: normal. Muscle strength: 5/5 DTR: 2+ Plantar reflex: Flexor. Also has bilateral grasp reflexes Gait: not examined in bed. Sensory exam: no abnormal findings. No cerebellar signs elicited. Review of Relevant I have reviewed the following items mike (where applicable) has been applied. Labs Laboratory Tests Test 04/14/17 16:50 HIV-1 Antibody Non reactive (Non Reactive) Microbiology 04/13/17 Blood Culture - Preliminary, Resulted NO GROWTH AFTER 2 DAYS 04/13/17 Urine Culture - Final, Complete 04/13/17 Urine Culture Result 1 ([place]) - Final, Complete Medications Current Medications Sodium Chloride 1,000 ml @ 1,000 mls/hr Q1H IV Last administered on 04/13/17 16:13; Start 04/13/17 at 15:30; Stop 04/13/17 at 16:29; Status DC Sodium Chloride (Normal Saline Flush) 10 ml QSHIFT PRN IV AFTER MEDS AND BLOOD DRAWS Last administered on 04/13/17 16:13; Start 04/13/17 at 15:15 Ondansetron HCl (Zofran) 4 mg PRN Q6HRS PRN IV NAUSEA/VOMITING, 1ST CHOICE; Start 04/13/17 at 19:00 Prochlorperazine Edisylate (Compazine) 10 mg PRN Q6HRS PRN IV NAUSEA/VOMITING, 2ND CHOICE; Start 04/13/17 at 19:00 Prochlorperazine (Compazine) 25 mg PRN Q12HR PRN [place] NAUSEA/VOMITING; Start 04/13 at 19:00 Al Hydroxide/Mg Hydroxide (Mylanta Plus Xs) 30 ml PRN Q3HRS PRN PO HEARTBURN / GAS; Start 04/13/17 at 19:00 Calcium Carbonate/ Glycine (Tums) 500 mg PRN Q3HRS PRN PO UPSET STOMACH; Start 04/13/17 at 19:00 Morphine Sulfate 1 mg PRN Q1HR PRN IV PAIN; Start 04/13/17 at 19:00 Acetaminophen/ Hydrocodone Bitart (Lortab 5/325) 1 tab PRN Q4HRS PRN PO MILD PAIN; Start 04/13/17 at 19:00 Acetaminophen (Tylenol) 650 mg PRN Q6HRS PRN PO Headaches, Temp > 101.5F; Start 04/13/17 at 19:00 Amino Acids/ Glycerin/ Electrolytes 1,000 ml @ 80 mls/hr [id number] IV Last administered on 04/16/17t 08:45; Start 04/13/17 at 21:00 Enoxaparin Sodium (Lovenox 30mg Syringe) 30 mg DAILY SQ ; Start 04/14/17 at 09:00 ; Stop 04/14/17 at 14:34; Status DC Pneumococcal Polyvalent Vaccine (Do NOT chart on this placeholder) 1 each 1X ONCE MC ; Start 04/13/17 at 22:30; Stop 04/13/17 at 22:31; Status UNV Pneumococcal Polyvalent Vaccine (Pneumovax 23) 0.5 ml ONCE ONCE VAX IM ; Start 04/14/17 at 09:00; Stop 04/14/17 at 16:59; Status DC Artificial Tears (Artificial Tears) 1 drop PRN Q15MIN PRN OU DRY EYE; Start 04/14/17 at 15:00 Pneumococcal Polyvalent Vaccine (Pneumovax 23) 0.5 ml ONCE ONCE VAX IM ; Start 04/15/17 at 09:00; Stop 04/15/17 at 09:01; Status DC Vitals/I & O Vital Sign - Last 24 Hours 6/4/17 6/4/17 6/4/17 6/4/17 15:02 19:10 20:00 22:50 Temp 98.5 98.2 98.0 98.5 98.2 98.0 Pulse 68 70 56 Resp 18 18 18 B/P (MAP) 110/49 (69) 124/50 (74) 137/58 (84) Pulse Ox 95 96 96 O2 Delivery Room Air Room Air Room Air Room Air 04/16/17 04/16/17 03:00 07:00 Temp 97.8 97.8 97.8 97.8 Pulse 50 65 Resp 18 18 B/P (MAP) 146/59 (88) 123/46 (71) Pulse Ox 96 91 O2 Delivery Room Air Room Air Intake and Output 04/15/17 04/15/17 04/16/17 15:00 23:00 07:00 Intake Total 440 ml 250 ml Output Total 300 ml 200 ml 900 ml Balance -300 ml 240 ml -650 ml MANNY SALCIDO MD Apr 16, 2017 10:46
--- NOTE | 2017-04-16 11:19 | PDOC ---
PROGRESS NOTES Chief Complaint Chief Complaint 1. FTT sxs 2. 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 Anemia, normocytic, probably from chronic disease 4. Hx Yosvany and colon ca, limited (15vyrs ago) 5. Undernourished/undernutrition - BMI 15.4 6. BASHIR, vaso motor 7. Poor PO 8. Bradycardia 9. Thrombocytopnia - new dx *(At least to pt) History of Present Illness History of Present Illness Seen and examined On IV [place] SOHAIL RN Neuro notes reviewed Will dc to SNU Vitals Vitals Vital Signs Date Time Temp Pulse Resp B/P (MAP) Pulse Ox O2 Delivery O2 Flow Rate FiO2 04/16/17 10:57 97.8 63 18 122/53 (76) 95 Room Air 97.8 Physical Exam General: Alert, Oriented X3, Cooperative, No acute distress Heart: Regular rate, Normal S1, Normal S2 Lungs: Clear Abdomen: Normal bowel sounds, Soft Extremities: No edema Skin: No rashes, No breakdown, Other (miniaml subQ tissue) Labs LABS Laboratory Tests Test 04/16/17 03:37 Prealbumin 10 mg/dL (9-32) Assessment and Plan Assessmemt and Plan Problems Medical Problems: (1) Dehydration Status: Acute (2) Depression Status: Acute (3) Failure to thrive Status: Acute (4) Malnutrition Status: Acute Dc to snu See dictation Total time 34 minutes Problems: Comment Review of Relevant I have reviewed the following items mike (where applicable) has been applied. Labs Laboratory Tests Test 04/14/17 16:50 04/16/17 03:37 HIV-1 Antibody Non reactive (Non Reactive) Prealbumin 10 mg/dL (9-32) Laboratory Tests Test 04/16/17 03:37 Prealbumin 10 mg/dL (9-32) Microbiology 04/13/17 Blood Culture - Preliminary, Resulted NO GROWTH AFTER 2 DAYS 04/13/17 Urine Culture - Final, Complete 04/13/17 Urine Culture Result 1 ([place]) - Final, Complete Medications Current Medications Sodium Chloride 1,000 ml @ 1,000 mls/hr Q1H IV Last administered on 04/13/17t 16:13; Start 04/13/17 at 15:30; Stop 04/13/17 at 16:29; Status DC Sodium Chloride (Normal Saline Flush) 10 ml QSHIFT PRN IV AFTER MEDS AND BLOOD DRAWS Last administered on 04/13/17 16:13; Start 04/13/17 at 15:15 Ondansetron HCl (Zofran) 4 mg PRN Q6HRS PRN IV NAUSEA/VOMITING, 1ST CHOICE; Start 04/13/17 at 19:00 Prochlorperazine Edisylate (Compazine) 10 mg PRN Q6HRS PRN IV NAUSEA/VOMITING, 2ND CHOICE; Start 04/13/17 at 19:00 Prochlorperazine (Compazine) 25 mg PRN Q12HR PRN [place] NAUSEA/VOMITING; Start 04/13 at 19:00 Al Hydroxide/Mg Hydroxide (Mylanta Plus Xs) 30 ml PRN Q3HRS PRN PO HEARTBURN / GAS; Start 04/13/17 at 19:00 Calcium Carbonate/ Glycine (Tums) 500 mg PRN Q3HRS PRN PO UPSET STOMACH; Start 04/13/17 at 19:00 Morphine Sulfate 1 mg PRN Q1HR PRN IV PAIN; Start 04/13/17 at 19:00 Acetaminophen/ Hydrocodone Bitart (Lortab 5/325) 1 tab PRN Q4HRS PRN PO MILD PAIN; Start 04/13/17 at 19:00 Acetaminophen (Tylenol) 650 mg PRN Q6HRS PRN PO Headaches, Temp > 101.5F; Start 04/13/17 at 19:00 Amino Acids/ Glycerin/ Electrolytes 1,000 ml @ 80 mls/hr [id number] IV Last administered on 04/16/17 08:45; Start 04/13/17 at 21:00 Enoxaparin Sodium (Lovenox 30mg Syringe) 30 mg DAILY SQ ; Start 04/14/17 at 09:00 ; Stop 04/14/17 at 14:34; Status DC Pneumococcal Polyvalent Vaccine (Do NOT chart on this placeholder) 1 each 1X ONCE MC ; Start 04/13/17 at 22:30; Stop 04/13/17 at 22:31; Status UNV Pneumococcal Polyvalent Vaccine (Pneumovax 23) 0.5 ml ONCE ONCE VAX IM ; Start 04/14/17 at 09:00; Stop 04/14/17 at 16:59; Status DC Artificial Tears (Artificial Tears) 1 drop PRN Q15MIN PRN OU DRY EYE; Start 04/14/17 at 15:00 Pneumococcal Polyvalent Vaccine (Pneumovax 23) 0.5 ml ONCE ONCE VAX IM ; Start 04/15/17 at 09:00; Stop 04/15/17 at 09:01; Status DC Donepezil HCl (Aricept) 5 mg DAILY PO ; Start 04/16/17 at 11:00; Stop 05/14/17 at 10:59 Vitals/I & O Vital Sign - Last 24 Hours 04/15/17 04/15/17 04/15/17 04/15/17 15:02 19:10 20:00 22:50 Temp 98.5 98.2 98.0 98.5 98.2 98.0 Pulse 68 70 56 Resp 18 18 18 B/P (MAP) 110/49 (69) 124/50 (74) 137/58 (84) Pulse Ox 95 96 96 O2 Delivery Room Air Room Air Room Air Room Air 04/16/17 04/16/17 04/16/17 03:00 07:00 10:57 Temp 97.8 97.8 97.8 97.8 97.8 97.8 Pulse 50 65 63 Resp 18 18 18 B/P (MAP) 146/59 (88) 123/46 (71) 122/53 (76) Pulse Ox 96 91 95 O2 Delivery Room Air Room Air Room Air Intake and Output 04/15/17 04/15/17 04/16/17 15:00 23:00 07:00 Intake Total 440 ml 250 ml Output Total 300 ml 200 ml 900 ml Balance -300 ml 240 ml -650 ml JOSE EDUARDO MACLLISTER III DO Apr 16, 2017 11:19
--- NOTE | 2017-04-16 12:23 | DS ---
DATE OF DISCHARGE: 04/16/2017 ADMISSION DIAGNOSIS: Generalized weakness, depression. DISCHARGE DIAGNOSIS: Probable failure to thrive and Alzheimer's. HOSPITAL COURSE: The patient is a pleasant 81-year-old female who presented with weakness and some depression. She was admitted. We consulted Neurology. Dr. Lombardi feels like this is probably adult failure to thrive and Alzheimer's. We plan to discharge to nursing home with eventual long-term care placement if the family agrees. The patient was seen and examined this morning. DISPOSITION: snf. ACTIVITY: As tolerated. DIET: Low sodium. MEDICATIONS: Please see the MRAD. TOTAL TIME: 34 minutes. JOSE EDUARDO MCALLISTER DO DR: MIKE/kari JOB#: [id number] / [id number]
[2017-04-16] MEDS: DONEPEZIL HCL 5 MG TABLET. PO SCH (12:40)
--- NOTE | 2017-04-16 19:29 | CARD ---
APPROVED REPORT EXAM: Two-dimensional and M-mode echocardiogram with Doppler and color Doppler. Other Information Quality : GoodHR: 62bpm Rhythm : NSR INDICATION Bradycardia 2D DIMENSIONS RVDd2.7 (2.9-3.5cm)Left Atrium(2D)3.7 (1.6-4.0cm) IVSd0.7 (0.7-1.1cm)Aortic Root(2D)2.5 (2.0-3.7cm) LVDd4.6 (3.9-5.9cm)LVOT Diameter2.0 (1.8-2.4cm) PWd0.7 (0.7-1.1cm)LVDs3.0 (2.5-4.0cm) FS (%) 34.7 %SV63.1 ml LVEF(%)63.9 (>50%) Aortic Valve LVOT Peak Sergio.105.5cm/Lu P 1/2 [id number] Mitral Valve MV E Vyhqbyak36.0cm/sMV E Peak Gr.7mmHg MV DECEL [id number] A Wdsadhzh658.7cm/s MV E Mean Gr.2mmHgE/A Ratio0.8 MV A [id number] Tricuspid Valve TR P. Mqjvqxsz063oj/sTR Peak Gr.41mmHg Pulmonary Vein S1 Wetziwej01.0cm/sD2 Owgrlykx52.5cm/s PVa [id number] LEFT VENTRICLE The left ventricle is normal size. There is normal left ventricular wall thickness. The left ventricu lar systolic function is normal and the ejection fraction is within normal range. The Ejection Fracti on is 60-65%. There is normal LV segmental wall motion. Transmitral Doppler flow pattern is Grade I-a bnormal relaxation pattern. RIGHT VENTRICLE The right ventricle is normal size. There is normal right ventricular wall thickness. The right ventr icular systolic function is normal. ATRIA The left atrium size is normal. The right atrium size is normal. The interatrial septum is intact wit h no evidence for an atrial septal defect or patent foramen ovale as noted on 2-D or Doppler imaging. AORTIC VALVE The aortic valve is mildly sclerotic. The aortic valve is trileaflet. Doppler and Color Flow revealed mild aortic regurgitation. There is no significant aortic valvular stenosis. MITRAL VALVE The mitral valve leaflets are mildly thickened. There is no evidence of mitral valve prolapse. There is no mitral valve stenosis. Doppler and Color Flow revealed mild mitral regurgitation. TRICUSPID VALVE Doppler and Color Flow revealed trace tricuspid regurgitation. The pulmonary artery systolic pressure is estimated at 41 mmHg. There is mild pulmonary hypertension. PULMONIC VALVE Doppler and Color Flow revealed no pulmonic valvular regurgitation. There is no pulmonic valvular theodore nosis. GREAT VESSELS The aortic root is normal in size. The ascending aorta is normal in size. The pulmonary artery is nor mal. The IVC is normal in size and collapses >50% with inspiration. PERICARDIAL EFFUSION Probable small left pleural effusion. There is no evidence of significant pericardial effusion. Critical Notification Critical Value: No <Conclusion> The left ventricle is normal size. There is normal left ventricular wall thickness. The systolic function is normal with an ejection fraction of 60%. Transmitral Doppler flow pattern is Grade I-abnormal relaxation pattern. There is no evidence of significant pericardial effusion. There is no mitral valve stenosis. Doppler and Color Flow revealed mild mitral regurgitation. The left atrium is of a normal size There is no significant aortic valvular stenosis. Doppler and Color Flow revealed mild aortic regurgitation. The right ventricle is of a normal size Doppler and Color Flow revealed trace tricuspid regurgitation. The pulmonary artery systolic pressure is estimated at 41 mmHg. There is mild pulmonary hypertension. The pulmonic valve is normal
[2017-04-17] VITALS (7 sets, daily range): BP systolic 96–142; BP diastolic 35–82
[2017-04-17] MEDS: AMINO AC 3%/ELECTROLYTE/GLYCER 1,000 ML IV SCH ×2 (09:55→22:27)
[2017-04-17] MEDS: DONEPEZIL HCL 5 MG TABLET. PO SCH (09:56)
--- NOTE | 2017-04-17 16:16 | PDOC ---
PROGRESS NOTES Chief Complaint Chief Complaint 1. FTT sxs 2. 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 Anemia, normocytic, probably from chronic disease 4. Hx Yosvany and colon ca, limited (15vyrs ago) 5. Undernourished/undernutrition - BMI 15.4 6. BASHIR, vaso motor 7. Poor PO 8. Bradycardia 9. Thrombocytopnia - new dx *(At least to pt) History of Present Illness History of Present Illness Seen and examined On IV [place] SOHAIL RN and case mgmt Neuro notes reviewed Vitals Vitals Vital Signs Date Time Temp Pulse Resp B/P (MAP) Pulse Ox O2 Delivery O2 Flow Rate FiO2 04/17/17 14:32 97.5 75 18 137/52 (80) 95 Room Air 97.5 Physical Exam General: Alert, Oriented X3, Cooperative, No acute distress Heart: Regular rate, Normal S1, Normal S2 Lungs: Clear Abdomen: Normal bowel sounds, Soft Extremities: No edema Skin: No rashes, No breakdown, Other (miniaml subQ tissue) Review of Systems Review of Systems co weakness co depression Assessment and Plan Assessmemt and Plan Problems Medical Problems: (1) Dehydration Status: Acute (2) Depression Status: Acute (3) Failure to thrive Status: Acute (4) Malnutrition Status: Acute 1. FTT sxs 2. 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 Anemia, normocytic, probably from chronic disease 4. Hx Yosvany and colon ca, limited (15vyrs ago) 5. Undernourished/undernutrition - BMI 15.4 6. BASHIR, vaso motor 7. Poor PO 8. Bradycardia 9. Thrombocytopnia - new dx *(At least to pt) Plan DW case mgmt. DC disposition pending Cont current tx PTOT Home meds Labs Prog guarded Problems: Comment Review of Relevant I have reviewed the following items mike (where applicable) has been applied. Labs Laboratory Tests Test 04/16/17 03:37 Prealbumin 10 mg/dL (9-32) Microbiology 04/13/17 Blood Culture - Preliminary, Resulted NO GROWTH AFTER 4 DAYS 04/13/17 Urine Culture - Final, Complete 04/13/17 Urine Culture Result 1 ([place]) - Final, Complete Medications Current Medications Sodium Chloride 1,000 ml @ 1,000 mls/hr Q1H IV Last administered on 04/13/17 16:13; Start 04/13/17 at 15:30; Stop 04/13/17 at 16:29; Status DC Sodium Chloride (Normal Saline Flush) 10 ml QSHIFT PRN IV AFTER MEDS AND BLOOD DRAWS Last administered on 04/13/17 16:13; Start 04/13/17 at 15:15 Ondansetron HCl (Zofran) 4 mg PRN Q6HRS PRN IV NAUSEA/VOMITING, 1ST CHOICE; Start 04/13/17 at 19:00 Prochlorperazine Edisylate (Compazine) 10 mg PRN Q6HRS PRN IV NAUSEA/VOMITING, 2ND CHOICE; Start 04/13/17 at 19:00 Prochlorperazine (Compazine) 25 mg PRN Q12HR PRN [place] NAUSEA/VOMITING; Start 04/13 at 19:00 Al Hydroxide/Mg Hydroxide (Mylanta Plus Xs) 30 ml PRN Q3HRS PRN PO HEARTBURN / GAS; Start 04/13/17 at 19:00 Calcium Carbonate/ Glycine (Tums) 500 mg PRN Q3HRS PRN PO UPSET STOMACH; Start 04/13/17 at 19:00 Morphine Sulfate 1 mg PRN Q1HR PRN IV PAIN; Start 04/13/17 at 19:00 Acetaminophen/ Hydrocodone Bitart (Lortab 5/325) 1 tab PRN Q4HRS PRN PO MILD PAIN; Start 04/13/17 at 19:00 Acetaminophen (Tylenol) 650 mg PRN Q6HRS PRN PO Headaches, Temp > 101.5F; Start 04/13/17 at 19:00 Amino Acids/ Glycerin/ Electrolytes 1,000 ml @ 80 mls/hr [id number] IV Last administered on 04/17/17 09:55; Start 04/13/17 at 21:00 Enoxaparin Sodium (Lovenox 30mg Syringe) 30 mg DAILY SQ ; Start 04/14/17 at 09:00 ; Stop 04/14/17 at 14:34; Status DC Pneumococcal Polyvalent Vaccine (Do NOT chart on this placeholder) 1 each 1X ONCE MC ; Start 04/13/17 at 22:30; Stop 04/13/17 at 22:31; Status UNV Pneumococcal Polyvalent Vaccine (Pneumovax 23) 0.5 ml ONCE ONCE VAX IM ; Start 04/14/17 at 09:00; Stop 04/14/17 at 16:59; Status DC Artificial Tears (Artificial Tears) 1 drop PRN Q15MIN PRN OU DRY EYE; Start 04/14/17 at 15:00 Pneumococcal Polyvalent Vaccine (Pneumovax 23) 0.5 ml ONCE ONCE VAX IM ; Start 04/15/17 at 09:00; Stop 04/15/17 at 09:01; Status DC Donepezil HCl (Aricept) 5 mg DAILY PO Last administered on 04/17/17t 09:56; Start 04/16/17 at 11:00; Stop 05/14/17 at 10:59 Vitals/I & O Vital Sign - Last 24 Hours 04/16/17 04/16/17 04/16/17 04/17/17 19:20 20:00 23:20 03:20 Temp 97.7 98.1 98.1 97.7 98.1 98.1 Pulse 77 67 64 Resp 28 24 24 B/P (MAP) 140/56 (84) 125/66 (85) 122/44 (70) Pulse Ox 96 96 93 O2 Delivery Room Air Room Air Room Air Room Air 04/17/17 04/17/17 04/17/17 04/17/17 07:04 08:00 10:38 14:32 Temp 97.9 97.9 97.5 97.9 97.9 97.5 Pulse 58 69 75 Resp 19 19 18 B/P (MAP) 132/82 (99) 131/51 (77) 137/52 (80) Pulse Ox 99 95 95 O2 Delivery Room Air Room Air Room Air Room Air Intake and Output 04/16/17 04/16/17 04/17/17 15:00 23:00 07:00 Intake Total 596 ml 50 ml Output Total 200 ml 300 ml 600 ml Balance -200 ml 296 ml -550 ml Nutrition Consultation Dietary Evaluation: Recommendations by RD: Add supplement feedings Comments: Ensure bid continue ppn until d/c Expected Outcomes/Goals: to meet > 75% est nutr needs via po intake Malnutrition Findings: Body Fat Depletion (Non Severe: Mild Depletion Weight Status: Underweight JOSE EDUARDO MCALLISTER III, DO Apr 17, 2017 16:16
[2017-04-18 06:56] VITALS: BP 114/51
[2017-04-18] MEDS: DONEPEZIL HCL 5 MG TABLET. PO SCH (08:31)
--- NOTE | 2017-04-18 10:06 | PDOC ---
PROGRESS NOTES Assessment Problems Medical Problems: (1) Dehydration Status: Acute (2) Depression Status: Acute (3) Failure to thrive Status: Acute (4) Malnutrition Status: Acute Basically a failure to thrive. Mild Alzheimer's disease, rest of dementia lab work is negative Elevated sedimentation rate, doubt temporal arteritis. Plan Okay for discharge Trial of donepezil Awaiting acceptance from [facility] Subjective No complaints Objective Vital Signs Date Time Temp Pulse Resp B/P (MAP) Pulse Ox O2 Delivery O2 Flow Rate FiO2 04/18/17 07:56 Room Air 04/18/17 06:56 98.1 74 19 114/51 (72) 95 98.1 04/17/17 20:03 2.0 Intake and Output 04/18/17 07:00 Intake Total 570 ml Output Total 950 ml Balance -380 ml Intake Oral 570 ml Output Urine Total 950 ml # Voids 12 # Bowel Movements 1 PHYSICAL EXAM Alert. Oriented to place and person. Knows month and year, not date or day PERRL. EOMI. CN: no focal findings. Muscle tone: normal. Muscle strength: 5/5 DTR: 2+ Plantar reflex: Flexor. Also has bilateral grasp reflexes Gait: not examined in bed. Sensory exam: no abnormal findings. No cerebellar signs elicited. Review of Relevant I have reviewed the following items mike (where applicable) has been applied. Labs Microbiology 04/13/17 Blood Culture - Preliminary, Resulted NO GROWTH AFTER 4 DAYS 04/13/17 Urine Culture - Final, Complete 04/13/17 Urine Culture Result 1 ([place]) - Final, Complete Medications Current Medications Sodium Chloride 1,000 ml @ 1,000 mls/hr Q1H IV Last administered on 04/13/17 16:13; Start 04/13/17 at 15:30; Stop 04/13/17 at 16:29; Status DC Sodium Chloride (Normal Saline Flush) 10 ml QSHIFT PRN IV AFTER MEDS AND BLOOD DRAWS Last administered on 04/13/17 16:13; Start 04/13/17 at 15:15 Ondansetron HCl (Zofran) 4 mg PRN Q6HRS PRN IV NAUSEA/VOMITING, 1ST CHOICE; Start 04/13/17 at 19:00 Prochlorperazine Edisylate (Compazine) 10 mg PRN Q6HRS PRN IV NAUSEA/VOMITING, 2ND CHOICE; Start 04/13/17 at 19:00 Prochlorperazine (Compazine) 25 mg PRN Q12HR PRN [place] NAUSEA/VOMITING; Start 04/13 at 19:00 Al Hydroxide/Mg Hydroxide (Mylanta Plus Xs) 30 ml PRN Q3HRS PRN PO HEARTBURN / GAS; Start 04/13/17 at 19:00 Calcium Carbonate/ Glycine (Tums) 500 mg PRN Q3HRS PRN PO UPSET STOMACH; Start 04/13/17 at 19:00 Morphine Sulfate 1 mg PRN Q1HR PRN IV PAIN; Start 04/13/17 at 19:00 Acetaminophen/ Hydrocodone Bitart (Lortab 5/325) 1 tab PRN Q4HRS PRN PO MILD PAIN; Start 04/13/17 at 19:00 Acetaminophen (Tylenol) 650 mg PRN Q6HRS PRN PO Headaches, Temp > 101.5F; Start 04/13/17 at 19:00 Amino Acids/ Glycerin/ Electrolytes 1,000 ml @ 80 mls/hr [id number] IV Last administered on 04/17/17 22:27; Start 04/13/17 at 21:00 Enoxaparin Sodium (Lovenox 30mg Syringe) 30 mg DAILY SQ ; Start 04/14/17 at 09:00 ; Stop 04/14/17 at 14:34; Status DC Pneumococcal Polyvalent Vaccine (Do NOT chart on this placeholder) 1 each 1X ONCE MC ; Start 04/13/17 at 22:30; Stop 04/13/17 at 22:31; Status UNV Pneumococcal Polyvalent Vaccine (Pneumovax 23) 0.5 ml ONCE ONCE VAX IM ; Start 04/14/17 at 09:00; Stop 04/14/17 at 16:59; Status DC Artificial Tears (Artificial Tears) 1 drop PRN Q15MIN PRN OU DRY EYE; Start 04/14/17 at 15:00 Pneumococcal Polyvalent Vaccine (Pneumovax 23) 0.5 ml ONCE ONCE VAX IM ; Start 04/15/17 at 09:00; Stop 04/15/17 at 09:01; Status DC Donepezil HCl (Aricept) 5 mg DAILY PO Last administered on 04/18/17 08:31; Start 04/16/17 at 11:00; Stop 05/14/17 at 10:59 Vitals/I & O Vital Sign - Last 24 Hours 04/17/17 04/17/17 04/17/17 04/17/17 10:38 14:32 19:00 20:03 Temp 97.9 97.5 97.9 97.5 Pulse 69 75 Resp 19 18 18 B/P (MAP) 131/51 (77) 137/52 (80) Pulse Ox 95 95 94 O2 Delivery Room Air Room Air Room Air Room Air O2 Flow Rate 2.0 04/17/17 04/17/17 04/18/17 04/18/17 20:08 23:28 03:20 06:56 Temp 98.5 98.3 98.1 98.5 98.3 98.1 Pulse 75 71 74 Resp 16 16 19 B/P (MAP) 135/59 (84) 142/ 114/51 (72) Pulse Ox 95 92 95 O2 Delivery Room Air Room Air Room Air Room Air 04/18/17 07:56 O2 Delivery Room Air Intake and Output 04/17/17 04/17/17 04/18/17 15:00 23:00 07:00 Intake Total 420 ml 120 ml 30 ml Output Total 200 ml 750 ml Balance 220 ml 120 ml -720 ml MANNY SALCIDO MD Apr 18, 2017 10:06
[2017-04-18] MEDS: AMINO AC 3%/ELECTROLYTE/GLYCER 1,000 ML IV SCH (10:21)
[2017-04-18 10:56] VITALS: BP 139/65
[2017-04-18 15:03] VITALS: BP 133/53
--- NOTE | 2017-04-18 18:55 | PDOC ---
PROGRESS NOTES Chief Complaint Chief Complaint 1. FTT sxs 2. 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 Anemia, normocytic, probably from chronic disease 4. Hx Yosvany and colon ca, limited (15vyrs ago) 5. Undernourished/undernutrition - BMI 15.4 6. BASHIR, vaso motor 7. Poor PO 8. Bradycardia 9. Thrombocytopnia - new dx *(At least to pt) History of Present Illness History of Present Illness Seen and examined On IV [place] SOHAIL RN and case mgmt Neuro notes reviewed Vitals Vitals Vital Signs Date Time Temp Pulse Resp B/P (MAP) Pulse Ox O2 Delivery O2 Flow Rate FiO2 04/18/17 15:03 97.5 96 19 133/53 (79) 95 Room Air 97.5 04/17/17 20:03 2.0 Physical Exam General: Alert, Oriented X3, Cooperative, No acute distress Heart: Regular rate, Normal S1, Normal S2 Lungs: Clear Abdomen: Normal bowel sounds, Soft Extremities: No edema Skin: No rashes, No breakdown, Other (miniaml subQ tissue) Review of Systems Review of Systems co weakness Assessment and Plan Assessmemt and Plan Problems Medical Problems: (1) Dehydration Status: Acute (2) Depression Status: Acute (3) Failure to thrive Status: Acute (4) Malnutrition Status: Acute 1. FTT sxs 2. 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 Anemia, normocytic, probably from chronic disease 4. Hx Yosvany and colon ca, limited (15vyrs ago) 5. Undernourished/undernutrition - BMI 15.4 6. BASHIR, vaso motor 7. Poor PO 8. Bradycardia 9. Thrombocytopnia - new dx *(At least to pt) Plan DC disposition pending Added Levaquin Cont Procalamine PTOT Labs Problems: Comment Review of Relevant I have reviewed the following items mike (where applicable) has been applied. Labs Microbiology 04/13/17 Blood Culture - Final, Complete NO GROWTH AFTER 5 DAYS 04/13/17 Urine Culture - Final, Complete 04/13/17 Urine Culture Result 1 ([place]) - Final, Complete Medications Current Medications Sodium Chloride 1,000 ml @ 1,000 mls/hr Q1H IV Last administered on 04/13/17t 16:13; Start 04/13/17 at 15:30; Stop 04/13/17 at 16:29; Status DC Sodium Chloride (Normal Saline Flush) 10 ml QSHIFT PRN IV AFTER MEDS AND BLOOD DRAWS Last administered on 04/13/17 16:13; Start 04/13/17 at 15:15 Ondansetron HCl (Zofran) 4 mg PRN Q6HRS PRN IV NAUSEA/VOMITING, 1ST CHOICE; Start 04/13/17 at 19:00 Prochlorperazine Edisylate (Compazine) 10 mg PRN Q6HRS PRN IV NAUSEA/VOMITING, 2ND CHOICE; Start 04/13/17 at 19:00 Prochlorperazine (Compazine) 25 mg PRN Q12HR PRN [place] NAUSEA/VOMITING; Start 04/13 at 19:00 Al Hydroxide/Mg Hydroxide (Mylanta Plus Xs) 30 ml PRN Q3HRS PRN PO HEARTBURN / GAS; Start 04/13/17 at 19:00 Calcium Carbonate/ Glycine (Tums) 500 mg PRN Q3HRS PRN PO UPSET STOMACH; Start 04/13/17 at 19:00 Morphine Sulfate 1 mg PRN Q1HR PRN IV PAIN; Start 04/13/17 at 19:00 Acetaminophen/ Hydrocodone Bitart (Lortab 5/325) 1 tab PRN Q4HRS PRN PO MILD PAIN; Start 04/13/17 at 19:00 Acetaminophen (Tylenol) 650 mg PRN Q6HRS PRN PO Headaches, Temp > 101.5F; Start 04/13/17 at 19:00 Amino Acids/ Glycerin/ Electrolytes 1,000 ml @ 80 mls/hr [id number] IV Last administered on 04/18/17 10:21; Start 04/13/17 at 21:00; Stop 04/18/17 at 17:17; Status DC Enoxaparin Sodium (Lovenox 30mg Syringe) 30 mg DAILY SQ ; Start 04/14/17 at 09:00 ; Stop 04/14/17 at 14:34; Status DC Pneumococcal Polyvalent Vaccine (Do NOT chart on this placeholder) 1 each 1X ONCE MC ; Start 04/13/17 at 22:30; Stop 04/13/17 at 22:31; Status UNV Pneumococcal Polyvalent Vaccine (Pneumovax 23) 0.5 ml ONCE ONCE VAX IM ; Start 04/14/17 at 09:00; Stop 04/14/17 at 16:59; Status DC Artificial Tears (Artificial Tears) 1 drop PRN Q15MIN PRN OU DRY EYE; Start 04/14/17 at 15:00 Pneumococcal Polyvalent Vaccine (Pneumovax 23) 0.5 ml ONCE ONCE VAX IM ; Start 04/15/17 at 09:00; Stop 04/15/17 at 09:01; Status DC Donepezil HCl (Aricept) 5 mg DAILY PO Last administered on 04/18/17 08:31; Start 04/16/17 at 11:00; Stop 05/14/17 at 10:59 Levofloxacin (Levaquin) 250 mg DAILY06 PO Last administered on 04/18/17 12:30; Start 04/18/17 at 12:00 Vitals/I & O Vital Sign - Last 24 Hours 04/17/17 04/17/17 04/17/17 04/17/17 19:00 20:03 20:08 23:28 Temp 98.5 98.3 98.5 98.3 Pulse 75 71 Resp 18 16 16 B/P (MAP) 135/59 (84) 142/ Pulse Ox 94 95 92 O2 Delivery Room Air Room Air Room Air Room Air O2 Flow Rate 2.0 04/18/17 04/18/17 04/18/17 04/18/17 03:20 06:56 07:56 10:56 Temp 98.1 98.1 98.1 98.1 Pulse 74 95 Resp 19 20 B/P (MAP) 114/51 (72) 139/65 (89) Pulse Ox 95 94 O2 Delivery Room Air Room Air Room Air Room Air 04/18/17 15:03 Temp 97.5 97.5 Pulse 96 Resp 19 B/P (MAP) 133/53 (79) Pulse Ox 95 O2 Delivery Room Air Intake and Output 04/17/17 04/17/17 04/18/17 15:00 23:00 07:00 Intake Total 420 ml 120 ml 30 ml Output Total 200 ml 750 ml Balance 220 ml 120 ml -720 ml Nutrition Consultation Dietary Evaluation: Recommendations by RD: Add supplement feedings Comments: Ensure bid continue ppn until d/c Expected Outcomes/Goals: to meet > 75% est nutr needs via po intake Malnutrition Findings: Body Fat Depletion (Non Severe: Mild Depletion Weight Status: Underweight JOSE EDUARDO MCALLISTER III DO Apr 18, 2017 18:55
[2017-04-18 19:28] VITALS: BP 130/59
[2017-04-18] MEDS: CALCIUM CARBONATE 500 MG TAB.CHEW PO PRN (20:46)
--- NOTE | 2017-04-18 21:23 | PDOC ---
PROGRESS NOTES Subjective Subjective She has no cardiac complaints. Objective Objective Vital Signs Date Time Temp Pulse Resp B/P (MAP) Pulse Ox O2 Delivery O2 Flow Rate FiO2 04/18/17 19:28 98.3 87 20 130/59 (82) 95 Room Air 98.3 04/17/17 20:03 2.0 Intake and Output 04/18/17 07:00 Intake Total 570 ml Output Total 950 ml Balance -380 ml Intake Oral 570 ml Output Urine Total 950 ml # Voids 12 # Bowel Movements 1 Physical Exam Physical Exam No significant changes in cardiac exam Assessment Assessment This patient has a multitude of problems. From a cardiac standpoint I would not recommend any further workup at this time. I agree with the present plan. We will sign off. Thank you Comment Review of Relevant I have reviewed the following items mike (where applicable) has been applied. Labs Microbiology 04/13/17 Blood Culture - Final, Complete NO GROWTH AFTER 5 DAYS 04/13/17 Urine Culture - Final, Complete 04/13/17 Urine Culture Result 1 ([place]) - Final, Complete Medications Current Medications Sodium Chloride 1,000 ml @ 1,000 mls/hr Q1H IV Last administered on 04/13/17 16:13; Start 04/13/17 at 15:30; Stop 04/13/17 at 16:29; Status DC Sodium Chloride (Normal Saline Flush) 10 ml QSHIFT PRN IV AFTER MEDS AND BLOOD DRAWS Last administered on 04/13/17 16:13; Start 04/13/17 at 15:15 Ondansetron HCl (Zofran) 4 mg PRN Q6HRS PRN IV NAUSEA/VOMITING, 1ST CHOICE; Start 04/13/17 at 19:00 Prochlorperazine Edisylate (Compazine) 10 mg PRN Q6HRS PRN IV NAUSEA/VOMITING, 2ND CHOICE; Start 04/13/17 at 19:00 Prochlorperazine (Compazine) 25 mg PRN Q12HR PRN [place] NAUSEA/VOMITING; Start 04/13 at 19:00 Al Hydroxide/Mg Hydroxide (Mylanta Plus Xs) 30 ml PRN Q3HRS PRN PO HEARTBURN / GAS; Start 04/13/17 at 19:00 Calcium Carbonate/ Glycine (Tums) 500 mg PRN Q3HRS PRN PO UPSET STOMACH Last administered on 04/18/17 20:46; Start 04/13/17 at 19:00 Morphine Sulfate 1 mg PRN Q1HR PRN IV PAIN; Start 04/13/17 at 19:00 Acetaminophen/ Hydrocodone Bitart (Lortab 5/325) 1 tab PRN Q4HRS PRN PO MILD PAIN; Start 04/13/17 at 19:00 Acetaminophen (Tylenol) 650 mg PRN Q6HRS PRN PO Headaches, Temp > 101.5F; Start 04/13/17 at 19:00 Amino Acids/ Glycerin/ Electrolytes 1,000 ml @ 80 mls/hr [id number] IV Last administered on 04/18/17 10:21; Start 04/13/17 at 21:00; Stop 04/18/17 at 17:17; Status DC Enoxaparin Sodium (Lovenox 30mg Syringe) 30 mg DAILY SQ ; Start 04/14/17 at 09:00 ; Stop 04/14/17 at 14:34; Status DC Pneumococcal Polyvalent Vaccine (Do NOT chart on this placeholder) 1 each 1X ONCE MC ; Start 04/13/17 at 22:30; Stop 04/13/17 at 22:31; Status UNV Pneumococcal Polyvalent Vaccine (Pneumovax 23) 0.5 ml ONCE ONCE VAX IM ; Start 04/14/17 at 09:00; Stop 04/14/17 at 16:59; Status DC Artificial Tears (Artificial Tears) 1 drop PRN Q15MIN PRN OU DRY EYE; Start 04/14/17 at 15:00 Pneumococcal Polyvalent Vaccine (Pneumovax 23) 0.5 ml ONCE ONCE VAX IM ; Start 04/15/17 at 09:00; Stop 04/15/17 at 09:01; Status DC Donepezil HCl (Aricept) 5 mg DAILY PO Last administered on 04/18/17 08:31; Start 04/16/17 at 11:00; Stop 05/14/17 at 10:59 Levofloxacin (Levaquin) 250 mg DAILY06 PO Last administered on 04/18/17 12:30; Start 04/18/17 at 12:00 Vitals/I & O Vital Sign - Last 24 Hours 04/17/17 04/18/17 04/18/17 04/18/17 23:28 03:20 06:56 07:56 Temp 98.3 98.1 98.3 98.1 Pulse 71 74 Resp 16 19 B/P (MAP) 142/ 114/51 (72) Pulse Ox 92 95 O2 Delivery Room Air Room Air Room Air Room Air 04/18/17 04/18/17 04/18/17 10:56 15:03 19:28 Temp 98.1 97.5 98.3 98.1 97.5 98.3 Pulse 95 96 87 Resp 20 19 20 B/P (MAP) 139/65 (89) 133/53 (79) 130/59 (82) Pulse Ox 94 95 95 O2 Delivery Room Air Room Air Room Air Intake and Output 04/17/17 04/17/17 04/18/17 15:00 23:00 07:00 Intake Total 420 ml 120 ml 30 ml Output Total 200 ml 750 ml Balance 220 ml 120 ml -720 ml Nutrition Consultation Dietary Evaluation: Recommendations by RD: Add supplement feedings Comments: Ensure bid continue ppn until d/c Expected Outcomes/Goals: to meet > 75% est nutr needs via po intake Malnutrition Findings: Body Fat Depletion (Non Severe: Mild Depletion Weight Status: Underweight KATHI PINEDA MD Apr 18, 2017 21:23
[2017-04-18 23:15] VITALS: BP 136/65
[2017-04-19 03:08] VITALS: BP 123/55
[2017-04-19] MEDS: CALCIUM CARBONATE 500 MG TAB.CHEW PO PRN (05:09)
[2017-04-19 07:00] VITALS: BP 103/42
[2017-04-19] MEDS: DONEPEZIL HCL 5 MG TABLET. PO SCH (08:48)
--- NOTE | 2017-04-19 10:24 | PDOC ---
PROGRESS NOTES Assessment Problems Medical Problems: (1) Dehydration Status: Acute (2) Depression Status: Acute (3) Failure to thrive Status: Acute (4) Malnutrition Status: Acute Basically a failure to thrive. Mild Alzheimer's disease, rest of dementia lab work is negative Elevated sedimentation rate, doubt temporal arteritis. Plan Okay for discharge Donepezil Awaiting acceptance from intermediate Subjective no complaints Objective Vital Signs Date Time Temp Pulse Resp B/P (MAP) Pulse Ox O2 Delivery O2 Flow Rate FiO2 04/19/17 07:00 98.1 79 18 103/42 (62) 94 Room Air 98.1 Intake and Output 04/19/17 07:00 Intake Total 1060 ml Output Total 1000 ml Balance 60 ml Intake Oral 1060 ml Output Urine Total 1000 ml # Voids 8 # Bowel Movements 1 PHYSICAL EXAM Alert. Oriented to person. PERRL. EOMI. CN: no focal findings. Muscle tone: normal. Muscle strength: 5/5 DTR: 2+ Plantar reflex: Flexor. Also has bilateral grasp reflexes Gait: not examined in bed. Sensory exam: no abnormal findings. No cerebellar signs elicited. Review of Relevant I have reviewed the following items mike (where applicable) has been applied. Labs Microbiology 04/13/17 Blood Culture - Final, Complete NO GROWTH AFTER 5 DAYS 04/13/17 Urine Culture - Final, Complete 04/13/17 Urine Culture Result 1 ([place]) - Final, Complete Medications Current Medications Sodium Chloride 1,000 ml @ 1,000 mls/hr Q1H IV Last administered on 04/13/17 16:13; Start 04/13/17 at 15:30; Stop 04/13/17 at 16:29; Status DC Sodium Chloride (Normal Saline Flush) 10 ml QSHIFT PRN IV AFTER MEDS AND BLOOD DRAWS Last administered on 04/13/17 16:13; Start 04/13/17 at 15:15 Ondansetron HCl (Zofran) 4 mg PRN Q6HRS PRN IV NAUSEA/VOMITING, 1ST CHOICE; Start 04/13/17 at 19:00 Prochlorperazine Edisylate (Compazine) 10 mg PRN Q6HRS PRN IV NAUSEA/VOMITING, 2ND CHOICE; Start 04/13/17 at 19:00 Prochlorperazine (Compazine) 25 mg PRN Q12HR PRN [place] NAUSEA/VOMITING; Start 04/13 at 19:00 Al Hydroxide/Mg Hydroxide (Mylanta Plus Xs) 30 ml PRN Q3HRS PRN PO HEARTBURN / GAS; Start 04/13/17 at 19:00 Calcium Carbonate/ Glycine (Tums) 500 mg PRN Q3HRS PRN PO UPSET STOMACH Last administered on 04/19/17 05:09; Start 04/13/17 at 19:00 Morphine Sulfate 1 mg PRN Q1HR PRN IV PAIN; Start 04/13/17 at 19:00 Acetaminophen/ Hydrocodone Bitart (Lortab 5/325) 1 tab PRN Q4HRS PRN PO MILD PAIN; Start 04/13/17 at 19:00 Acetaminophen (Tylenol) 650 mg PRN Q6HRS PRN PO Headaches, Temp > 101.5F; Start 04/13/17 at 19:00 Amino Acids/ Glycerin/ Electrolytes 1,000 ml @ 80 mls/hr [id number] IV Last administered on 04/18/17 10:21; Start 04/13/17 at 21:00; Stop 04/18/17 at 17:17; Status DC Enoxaparin Sodium (Lovenox 30mg Syringe) 30 mg DAILY SQ ; Start 04/14/17 at 09:00 ; Stop 04/14/17 at 14:34; Status DC Pneumococcal Polyvalent Vaccine (Do NOT chart on this placeholder) 1 each 1X ONCE [facility] ; Start 04/13/17 at 22:30; Stop 04/13/17 at 22:31; Status UNV Pneumococcal Polyvalent Vaccine (Pneumovax 23) 0.5 ml ONCE ONCE VAX IM ; Start 04/14/17 at 09:00; Stop 04/14/17 at 16:59; Status DC Artificial Tears (Artificial Tears) 1 drop PRN Q15MIN PRN OU DRY EYE; Start 04/14/17 at 15:00 Pneumococcal Polyvalent Vaccine (Pneumovax 23) 0.5 ml ONCE ONCE VAX IM ; Start 04/15/17 at 09:00; Stop 04/15/17 at 09:01; Status DC Donepezil HCl (Aricept) 5 mg DAILY PO Last administered on 04/19/17 08:48; Start 04/16/17 at 11:00; Stop 05/14/17 at 10:59 Levofloxacin (Levaquin) 250 mg DAILY06 PO Last administered on 04/19/17t 05:09; Start 04/18/17 at 12:00 Vitals/I & O Vital Sign - Last 24 Hours 04/18/17 04/18/17 04/18/17 04/18/17 10:56 15:03 19:28 20:00 Temp 98.1 97.5 98.3 98.1 97.5 98.3 Pulse 95 96 87 Resp 20 19 20 B/P (MAP) 139/65 (89) 133/53 (79) 130/59 (82) Pulse Ox 94 95 95 O2 Delivery Room Air Room Air Room Air Room Air 04/18/17 04/19/17 04/19/17 23:15 03:08 07:00 Temp 98.4 98.3 98.1 98.4 98.3 98.1 Pulse 77 69 79 Resp 20 16 18 B/P (MAP) 136/65 (88) 123/55 (77) 103/42 (62) Pulse Ox 98 94 94 O2 Delivery Room Air Room Air Room Air Intake and Output 04/18/17 04/18/17 04/19/17 15:00 23:00 07:00 Intake Total 320 ml 500 ml 240 ml Output Total 300 ml 100 ml 600 ml Balance 20 ml 400 ml -360 ml MANNY SALCIDO MD Apr 19, 2017 10:24
--- NOTE | 2017-04-19 10:59 | PDOC ---
PROGRESS NOTES Chief Complaint Chief Complaint 1. FTT sxs 2. 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 Anemia, normocytic, probably from chronic disease 4. Hx Yosvany and colon ca, limited (15vyrs ago) 5. Undernourished/undernutrition - BMI 15.4 6. BASHIR, vaso motor 7. Poor PO 8. Bradycardia 9. Thrombocytopnia - new dx *(At least to pt) History of Present Illness History of Present Illness Seen and examined On IV [place] [facility] RN and case mgmt Neuro notes reviewed Vitals Vitals Vital Signs Date Time Temp Pulse Resp B/P (MAP) Pulse Ox O2 Delivery O2 Flow Rate FiO2 04/19/17 07:00 98.1 79 18 103/42 (62) 94 Room Air 98.1 Physical Exam General: Alert, Oriented X3, Cooperative, No acute distress Heart: Regular rate, Normal S1, Normal S2 Lungs: Clear Abdomen: Normal bowel sounds, Soft Extremities: No edema Skin: No rashes, No breakdown, Other (miniaml subQ tissue) Review of Systems Review of Systems co wericardo co depression Assessment and Plan Assessmemt and Plan Problems Medical Problems: (1) Dehydration Status: Acute (2) Depression Status: Acute (3) Failure to thrive Status: Acute (4) Malnutrition Status: Acute 1. FTT sxs 2. 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 Anemia, normocytic, probably from chronic disease 4. Hx Yosvany and colon ca, limited (15vyrs ago) 5. Undernourished/undernutrition - BMI 15.4 6. BASHIR, vaso motor 7. Poor PO 8. Bradycardia 9. Thrombocytopnia - new dx *(At least to pt) plan dc disposition pending Hope to dc today? Cont home meds PTOT Dr Dr Lombardi and RN Problems: Comment Review of Relevant I have reviewed the following items mike (where applicable) has been applied. Labs Microbiology 04/13/17 Blood Culture - Final, Complete NO GROWTH AFTER 5 DAYS 04/13/17 Urine Culture - Final, Complete 04/13/17 Urine Culture Result 1 ([place]) - Final, Complete Medications Current Medications Sodium Chloride 1,000 ml @ 1,000 mls/hr Q1H IV Last administered on 04/13/17t 16:13; Start 04/13/17 at 15:30; Stop 04/13/17 at 16:29; Status DC Sodium Chloride (Normal Saline Flush) 10 ml QSHIFT PRN IV AFTER MEDS AND BLOOD DRAWS Last administered on 04/13/17 16:13; Start 04/13/17 at 15:15 Ondansetron HCl (Zofran) 4 mg PRN Q6HRS PRN IV NAUSEA/VOMITING, 1ST CHOICE; Start 04/13/17 at 19:00 Prochlorperazine Edisylate (Compazine) 10 mg PRN Q6HRS PRN IV NAUSEA/VOMITING, 2ND CHOICE; Start 04/13/17 at 19:00 Prochlorperazine (Compazine) 25 mg PRN Q12HR PRN [place] NAUSEA/VOMITING; Start 04/13 at 19:00 Al Hydroxide/Mg Hydroxide (Mylanta Plus Xs) 30 ml PRN Q3HRS PRN PO HEARTBURN / GAS; Start 04/13/17 at 19:00 Calcium Carbonate/ Glycine (Tums) 500 mg PRN Q3HRS PRN PO UPSET STOMACH Last administered on 04/19/17 05:09; Start 04/13/17 at 19:00 Morphine Sulfate 1 mg PRN Q1HR PRN IV PAIN; Start 04/13/17 at 19:00 Acetaminophen/ Hydrocodone Bitart (Lortab 5/325) 1 tab PRN Q4HRS PRN PO MILD PAIN; Start 04/13/17 at 19:00 Acetaminophen (Tylenol) 650 mg PRN Q6HRS PRN PO Headaches, Temp > 101.5F; Start 04/13/17 at 19:00 Amino Acids/ Glycerin/ Electrolytes 1,000 ml @ 80 mls/hr [id number] IV Last administered on 04/18/17 10:21; Start 04/13/17 at 21:00; Stop 04/18/17 at 17:17; Status DC Enoxaparin Sodium (Lovenox 30mg Syringe) 30 mg DAILY SQ ; Start 04/14/17 at 09:00 ; Stop 04/14/17 at 14:34; Status DC Pneumococcal Polyvalent Vaccine (Do NOT chart on this placeholder) 1 each 1X ONCE MC ; Start 04/13/17 at 22:30; Stop 04/13/17 at 22:31; Status UNV Pneumococcal Polyvalent Vaccine (Pneumovax 23) 0.5 ml ONCE ONCE VAX IM ; Start 04/14/17 at 09:00; Stop 04/14/17 at 16:59; Status DC Artificial Tears (Artificial Tears) 1 drop PRN Q15MIN PRN OU DRY EYE; Start 04/14/17 at 15:00 Pneumococcal Polyvalent Vaccine (Pneumovax 23) 0.5 ml ONCE ONCE VAX IM ; Start 04/15/17 at 09:00; Stop 04/15/17 at 09:01; Status DC Donepezil HCl (Aricept) 5 mg DAILY PO Last administered on 04/19/17 08:48; Start 04/16/17 at 11:00; Stop 05/14/17 at 10:59 Levofloxacin (Levaquin) 250 mg DAILY06 PO Last administered on 04/19/17 05:09; Start 04/18/17 at 12:00 Vitals/I & O Vital Sign - Last 24 Hours 04/18/17 04/18/17 04/18/17 04/18/17 15:03 19:28 20:00 23:15 Temp 97.5 98.3 98.4 97.5 98.3 98.4 Pulse 96 87 77 Resp 19 20 20 B/P (MAP) 133/53 (79) 130/59 (82) 136/65 (88) Pulse Ox 95 95 98 O2 Delivery Room Air Room Air Room Air Room Air 04/19/17 04/19/17 03:08 07:00 Temp 98.3 98.1 98.3 98.1 Pulse 69 79 Resp 16 18 B/P (MAP) 123/55 (77) 103/42 (62) Pulse Ox 94 94 O2 Delivery Room Air Room Air Intake and Output 04/18/17 04/18/17 04/19/17 15:00 23:00 07:00 Intake Total 320 ml 500 ml 240 ml Output Total 300 ml 100 ml 600 ml Balance 20 ml 400 ml -360 ml Nutrition Consultation Dietary Evaluation: Recommendations by RD: Add supplement feedings Comments: Ensure bid continue ppn until d/c Expected Outcomes/Goals: to meet > 75% est nutr needs via po intake Malnutrition Findings: Body Fat Depletion (Non Severe: Mild Depletion Weight Status: Underweight JOSE EDUARDO MCALLISTER III DO Apr 19, 2017 10:59
[2017-04-19 11:00] VITALS: BP 105/41
--- NOTE | 2017-04-20 03:50 | DS ---
DATE OF DISCHARGE: 04/19/2017 ADMISSION DIAGNOSES: Generalized weakness, depression, probable failure to thrive. DISCHARGE DIAGNOSES: Chronic failure to thrive, old stroke, old history of colon cancer, thrombocytopenia. HOSPITAL COURSE: The patient is a pleasant 82-year-old female who presented with basically failure to thrive. She is weak. She has got previous cancer. We admitted the patient, gave her fluids, did some physical therapy. Over the past few days, she has improved. I think we are going to discharge to a care home today. She was seen and examined again this morning. PHYSICAL EXAMINATION: HEART: Heart sounds were normal. LUNGS: Clear. PSYCHIATRIC: She was little depressed. EXTREMITIES: No edema. SKIN: No rashes. We plan to discharge if we can find a place for her to go. DISPOSITION: [facility]. ACTIVITY: As tolerated. DIET: Low sodium. MEDICATIONS: Please see the MRAD. TOTAL TIME: 31 minutes. JOSE EDUARDO MCALLISTER DO DR: MIKE/kari JOB#: [id number] / [id number]
== END 2017-04-19 14:50 | DRG 682 ==
LOC: ER 15:02 → 6 SOUTH 19:15
PROVIDERS: ADMIT Internal Medicine; ATTEND Internal Medicine
DX: N17.0 Acute kidney failure with tubular necrosis (principal); G93.41 Metabolic encephalopathy; D61.818 Other pancytopenia; Z68.1 Body mass index [BMI] 19.9 or less, adult; E44.0 Moderate protein-calorie malnutrition; G30.9 Alzheimer's disease, unspecified; R62.7 Adult failure to thrive; D63.8 Anemia in other chronic diseases classified elsewhere; E86.0 Dehydration; F02.80 Dementia in other diseases classified elsewhere, unspecified severity, without behavioral disturbance, psychotic disturbance, mood disturbance, and anxiety; D64.9 Anemia, unspecified; R00.1 Bradycardia, unspecified; Z85.038 Personal history of other malignant neoplasm of large intestine; Z90.49 Acquired absence of other specified parts of digestive tract; Z82.49 Family history of ischemic heart disease and other diseases of the circulatory system; Z86.73 Personal history of transient ischemic attack (TIA), and cerebral infarction without residual deficits; Z85.9 Personal history of malignant neoplasm, unspecified
CPT/HCPCS: 36415; 70450; 71010; 76700; 80048; 80053; 80074; 81001; 82140; 82550; 82553; 82607; 82746; 83540; 83550; 83605; 83735; 83880; 84134; 84443; 84484; 85007; 85027; 85045; 85651; 86703; 87040; 87086; 93005; 93306; 96360; 96361; J7030; 97116; 97530; 97535; 99285-25